=== PATIENT | female | born 1945 | race Caucasian/White ===

== ENCOUNTER 2019-07-20 06:00 | Outpatient (RCR) | payer MEDICARE, OTHER, SELFPAY | END 2019-08-04 23:59 | disposition home or self-care (01) | LOC: MPT 06:00 | PROVIDERS: Family Provider Family Medicine; PCP Family Medicine; Visit Provider Family Medicine | DX: R32 Unspecified urinary incontinence (principal) | CPT/HCPCS: 97110; 97140; 97161; 97530 ==

== ENCOUNTER 2019-08-05 06:00 | Outpatient (RCR) | payer MEDICARE, OTHER, SELFPAY | END 2019-09-02 23:59 | disposition home or self-care (01) | LOC: MPT 06:00 | PROVIDERS: Family Provider Family Medicine; PCP Family Medicine; Visit Provider Family Medicine | DX: R32 Unspecified urinary incontinence (principal) | CPT/HCPCS: 97110; 97140 ==

== ENCOUNTER 2019-08-18 15:41 | Outpatient (CLI) | payer MEDICARE, OTHER, SELFPAY ==
--- NOTE | 2019-08-18 15:45 | USCV_ITS ---
MaverickEpifanioIrina Age: 74 Gender: F : 1945 Exam Date: 08/18/2019 16:16 Ordering Phys: Jackie Pate MD ([email or web address]) Technologist: ROSA MARIA GARZA Exam Location: [facility] [place] Indication: SOB, BRADYCARDIA, HTN BP: 119 / 46 HR: 64 Rhythm: Sinus Technical Quality: Adequate MEASUREMENTS (Male / Female) Normal Values 2D ECHO LV Diastolic Diameter PLAX 4.2 cm 4.2 - 5.9 / 3.9 - 5.3 cm LV Systolic Diameter PLAX 3.1 cm IVS Diastolic Thickness 0.9 cm 0.6 - 1.0 / 0.6 - 0.9 cm IVS Systolic Thickness 1.1 cm LVPW Diastolic Thickness 1.0 cm 0.6 - 1.0 / 0.6 - 0.9 cm LVPW Systolic Thickness 1.4 cm LVOT Diameter 2.0 cm LV Ejection Fraction 2D Teich 51.4 % LV Ejection Fraction MOD 2C 72.7 % LV Ejection Fraction 2C AL 74.0 % LA Diameter 2.5 cm LA Width 3.5 cm LA Height 4.9 cm RA Width 3.2 cm RA Height 5.1 cm Aorta at Sinotubular Diameter 2.6 cm M-MODE LV Diastolic Diameter MM 4.8 cm 4.2 - 5.9 / 3.9 - 5.3 cm LV Systolic Diameter MM 3.0 cm LV Ejection Fraction MM Teich 65.3 % IVS Diastolic Thickness MM 0.9 cm 0.6 - 1.0 / 0.6 - 0.9 cm IVS Systolic Thickness MM 1.4 cm LVPW Diastolic Thickness MM 1.0 cm 0.6 - 1.0 / 0.6 - 0.9 cm LVPW Systolic Thickness MM 1.1 cm Aortic Annulus Diameter 2.9 cm LA Ao Ratio MM 0.9 MV E Point Septal Separation 0.3 cm DOPPLER AV Peak Velocity 135.0 cm/s LVOT Peak Velocity 101.0 cm/s AV Area Cont Eq vti 2.4 cm squared AV Area Cont Eq pk 2.4 cm squared MV Area PHT 2.7 cm squared Mitral E to A Ratio 1.1 MV E' Velocity 12.0 cm/s Mitral E to MV E' Ratio 7.2 Mitral E to LV E' Lateral Ratio 6.8 Mitral E to LV E' Septal Ratio 7.5 TV Peak E Velocity 59.0 cm/s Right Atrial Pressure 3.0 mmHg PV Peak Velocity 86.0 cm/s RV Acceleration Time 0.2 s RV Ejection Time 0.3 s RV AcT/ET 0.5 FINDINGS Left Ventricle Normal left ventricular cavity size. Normal left ventricular systolic function. No regional wall motion abnormalities. Left ventricular ejection fraction is estimated at 60 %. Grade I/IV diastolic dysfunction (abnormal relaxation filling pattern), normal to mildly elevated filling pressures. Right Ventricle Normal right ventricular size. RVSP could not be calculated due to incomplete tricuspid regurgitation velocity profile. Right Atrium The right atrium is normal in size. Left Atrium Moderately increased left atrial size. Mitral Valve Moderately thickened mitral valve. No mitral valve stenosis. Mild mitral valve regurgitation. Aortic Valve Moderate aortic valve calcification. No aortic valve stenosis. Mild aortic valve regurgitation. Tricuspid Valve Mild tricuspid valve regurgitation. Pulmonic Valve Structurally normal pulmonic valve without significant stenosis. There is no pulmonic regurgitation. Pericardium Normal pericardium without effusion. Aorta Normal ascending aorta dimension. CONCLUSIONS 1-Normal left ventricular cavity size. Normal left ventricular systolic function. No regional wall motion abnormalities. Left ventricular ejection fraction is estimated at 60 %. Grade I/IV diastolic dysfunction (abnormal relaxation filling pattern), normal to mildly elevated filling pressures. 2-Normal right ventricular size. RVSP could not be calculated due to incomplete tricuspid regurgitation velocity profile. 3-Moderately increased left atrial size. 4-Moderately thickened mitral valve. No mitral valve stenosis. Mild mitral valve regurgitation. 5-Moderate aortic valve calcification. No aortic valve stenosis. Mild aortic valve regurgitation. 6-Mild tricuspid valve regurgitation. 7-There is no pericardial effusion. 8-Right atrial pressure is around 5 mm of mercury. 9-There are no prior echocardiogram studies to compare. Jackie Pate MD (Electronically Signed) Final Date: 21 August 2019 20:08 S
== END 2019-08-18 15:42 | disposition home or self-care (01) ==
LOC: US 15:41
PROVIDERS: Family Provider Family Medicine; PCP Family Medicine; Visit Provider Internal Medicine Cardiovascular Disease
DX: R06.02 Shortness of breath (principal); R00.1 Bradycardia, unspecified; I10 Essential (primary) hypertension; I34.0 Nonrheumatic mitral (valve) insufficiency; I70.0 Atherosclerosis of aorta; I07.1 Rheumatic tricuspid insufficiency; I35.1 Nonrheumatic aortic (valve) insufficiency
CPT/HCPCS: 93306

== ENCOUNTER → 2020-06-03 11:23 | Outpatient (BNVA) | payer MEDICARE, OTHER, SELFPAY | PROVIDERS: Family Provider Family Medicine; PCP Family Medicine; Visit Provider Family Medicine | DX: Z12.39 Encounter for other screening for malignant neoplasm of breast (principal); Z12.11 Encounter for screening for malignant neoplasm of colon; E78.2 Mixed hyperlipidemia; I50.32 Chronic diastolic (congestive) heart failure; R73.03 Prediabetes; R82.90 Unspecified abnormal findings in urine; F41.9 Anxiety disorder, unspecified; Z12.31 Encounter for screening mammogram for malignant neoplasm of breast; I11.0 Hypertensive heart disease with heart failure | CPT/HCPCS: 80053; 80061; 81000; 83036 ==

== ENCOUNTER → 2020-06-14 09:59 | Outpatient (BNVA) | payer MEDICARE, OTHER, SELFPAY | PROVIDERS: Family Provider Family Medicine; PCP Family Medicine; Referring Provider Internal Medicine; Visit Provider Internal Medicine | DX: Z01.818 Encounter for other preprocedural examination (principal); Z86.010 Personal history of colon polyps | CPT/HCPCS: 87635 ==

== ENCOUNTER 2020-06-21 07:53 | Day surgery (SDC) | payer MEDICARE, OTHER, SELFPAY ==
[2020-06-19 14:21] VITALS: BMI 23.5
[2020-06-21 08:07] VITALS: BP 112/84; PULSE 86; RESP 16; TEMP 36.7; O2SAT 96
[2020-06-21] MEDS: sodium chloride 0.9% 1,000 ML 30 ML IV (08:22)
[2020-06-21 08:28] LABS: Glucose Point of Care 95 mg/dL (70-110)
--- NOTE | 2020-06-21 08:51 | P.ANESASSM_ITS ---
Pre-Anesthetic Assessment Pre-Anesthetic Assessment: Height/Weight: Height 1.63 m Weight 62.142 kg Temp Pulse Resp BP Pulse Ox 98.1 F 86 16 112/84 96 06/21/20 08:07 06/21/20 08:07 06/21/20 08:07 06/21/20 08:07 06/21/20 08:07 Preop Diagnosis: hx polyps Proposed Procedure: Operation Date: 06/21/20 09:15 Proposed Procedures p Colonoscopy 43469 Z86.010(Not Applicable) - Andrade Howe MD Last intake: Intake Last Liquid Date 06/20/20 Last Liquid Time 21:00 Last Solid Date 06/19/20 Last Solid Time 21:00 Social: Social History: No alcohol and No tobacco Exam: Pre-Anes Outpt Exam: alert, oriented x 3, clear to auscultation bilaterally and regular rate & rhythm Airway: Submandibular: WNL Cervical ROM: WNL MP: 2 Dentition: Full History/ROS: No significant history except as noted and No significant complaints Pulmonary: Pulmonary: None reported CV/HEM: CV/HEM: CAD (hx mild MD, denies cp or PCI) and HTN : : None reported Hepatic: Hepatic: None reported Metabolic: Metabolic: None reported Musc/skel: Musc/skel: OA/DJD Neuropsych: Neuropsych: Anxiety Anesthetic Plan: ASA status: 2 Anesthesia: MAC Meds/Allergies Current Medications: Current Medications Generic Name Dose Route Start Last Admin Trade Name Freq PRN Reason Stop Dose Admin Sodium Chloride 1,000 mls @ 30 ml s/hr 06/21/20 08:00 06/21/20 08:22 Sodium Chloride 0.9% IV 06/22/20 07:59 30 mls/hr .Q24H LUIS Administration PFSH Anesthesia 2 PFSH: Medical History Bradycardia Dementia, senile with depression Diastolic CHF Essential hypertension History of malignant melanoma Hx of vaginal delivery Irregular heartbeat Mixed hyperlipidemia Urinary incontinence Surgical History History of melanoma excision History of neck surgery Previous back surgery S/P cholecystectomy S/P hysterectomy Family History Daughter Diabetes Mother Myocardial infarction Brother Myocardial infarction Social History Smoking and tobacco status: former smoker Quit status (tobacco): has quit using tobacco Second hand smoke exposure: No Alcohol intake: never Desire information about alcohol rehabilitation?: No Desire information about substance/drug rehabilitation?: No Current occupational status: retired History of recent travel: No Female Reproductive History: Spontaneous abortions: No Data Anesthesia Other Labs: Laboratory Results - last 48 hr 06/21/20 08:19 POC Glucose 95 Cardiac Studies: No Data to Display
--- NOTE | 2020-06-21 09:06 | W.PM.OPSUD ---
Surgery/Procedure H&P Update DATE OF PROCEDURE: June 21, 2020 DATE H&P PERFORMED: 06/12/20 PREOP DIAGNOSIS: hx polyps PLANNED PROCEDURE: Operation Date: 06/21/20 09:15 Proposed Procedures p Colonoscopy 62919 Z86.010(Not Applicable) - Andrade Howe MD
[2020-06-21 09:17] VITALS: BP 112/84; PULSE 87; RESP 18; TEMP 36.7; O2SAT 96
[2020-06-21 09:29] VITALS: BP 100/74; PULSE 70; RESP 18; TEMP 36.3; O2SAT 97
== END 2020-06-21 09:42 | disposition home or self-care (01) ==
PROVIDERS: PCP Family Medicine; Visit Provider Internal Medicine
PROC: 0DJD8ZZ Inspection of Lower Intestinal Tract, Via Natural or Artificial Opening Endoscopic (ICD-10-PCS; CPT 45378; principal; 2020-06-21 09:15)
DX: Z86.010 Personal history of colon polyps (principal); I25.10 Atherosclerotic heart disease of native coronary artery without angina pectoris; I25.2 Old myocardial infarction; M19.90 Unspecified osteoarthritis, unspecified site; F41.9 Anxiety disorder, unspecified; I11.0 Hypertensive heart disease with heart failure; I50.30 Unspecified diastolic (congestive) heart failure; E78.2 Mixed hyperlipidemia; Z87.891 Personal history of nicotine dependence
CPT/HCPCS: 12345; 36416; 82962; G0121; J2704; J7030

== ENCOUNTER 2020-06-24 09:09 | Outpatient (CLI) | payer MEDICARE, OTHER, SELFPAY ==
--- NOTE | 2020-06-24 10:00 | MM_ITS ---
WS: [id number] BILATERAL DIGITAL SCREENING MAMMOGRAPHY WITH CAD CLINICAL INFORMATION: Z12.39 - Encounter for other screening for malignant neoplasm of breast HISTORY: Screening mammogram. No current complaints. COMPARISON: TECHNIQUE: Bilateral CC and MLO views. FINDINGS: Scattered fibroglandular densities bilaterally. No suspicious focal mass, asymmetry, calcifications, or architectural distortion. No evidence of malignancy. Punctate calcifications. Vascular calcificati ons. MM/[place] [id number] IMPRESSION: BI-RADS: 2-Benign FOLLOW UP: 1 Year Follow-up Recommend return to annual screening mammography.
== END 2020-06-24 09:10 | disposition home or self-care (01) ==
LOC: RADSHAW 09:12
PROVIDERS: PCP Family Medicine; Visit Provider Family Medicine
DX: Z12.31 Encounter for screening mammogram for malignant neoplasm of breast (principal)
CPT/HCPCS: 77067

== ENCOUNTER → 2020-12-30 12:21 | Outpatient (BNVA) | payer MEDICARE, OTHER, SELFPAY | PROVIDERS: PCP Family Medicine; Visit Provider Family Medicine | DX: E53.8 Deficiency of other specified B group vitamins (principal); F03.91 Unspecified dementia, unspecified severity, with behavioral disturbance; F41.1 Generalized anxiety disorder; I10 Essential (primary) hypertension; J30.9 Allergic rhinitis, unspecified; R73.03 Prediabetes; R53.83 Other fatigue; R32 Unspecified urinary incontinence; I50.32 Chronic diastolic (congestive) heart failure; J30.1 Allergic rhinitis due to pollen; R35.0 Frequency of micturition | CPT/HCPCS: 80053; 80061; 81000; 82607; 83036; 85025; 87086 ==

== ENCOUNTER → 2021-01-20 13:41 | Outpatient (BNVA) | payer MEDICARE, OTHER, SELFPAY | PROVIDERS: PCP Family Medicine; Referring Provider Family Medicine; Visit Provider Nurse Practitioner Family | DX: R32 Unspecified urinary incontinence (principal); Z87.442 Personal history of urinary calculi | CPT/HCPCS: 81003 ==

== ENCOUNTER 2021-02-10 11:18 | Outpatient (CLI) | payer MEDICARE, OTHER, SELFPAY ==
--- NOTE | 2021-02-10 12:15 | XRR_ITS ---
PROCEDURE INFORMATION: Exam: XR Abdomen Exam date and time: 02/10/2021 12:15 PM Age: 75 years old Clinical indication: Condition or disease; Kidney or ureter condition; Calculus (stone) in kidney; Prior surgery; Surgery type: Hysterectomy, gb; Additional info: Kidney stones TECHNIQUE: Imaging protocol: XR of the abdomen. Views: Frontal supine view of the abdomen. 1 View. COMPARISON: CT abdomen pelvis con [id number] 11/12/2020 10:24 AM FINDINGS: Gastrointestinal tract: Bowel gas pattern is nonspecific. No mass effect upon the bowel loops. Distal rectal gas. Scattered loops of air filled small bowel none of which are dilated. Intraperitoneal space: Surgical clips right mid abdomen Bones/joints: No acute process within the osseous structures of the spine or pelvis. Other findings: No appreciable calcifications XR/XR KUB [id number] IMPRESSION: Bowel gas pattern is nonspecific.
== END 2021-02-10 11:19 | disposition home or self-care (01) ==
PROVIDERS: PCP Family Medicine; Visit Provider Urology
DX: N20.0 Calculus of kidney (principal)
CPT/HCPCS: 74018; 81003

== ENCOUNTER → 2021-04-23 11:13 | Outpatient (BNVA) | payer MEDICARE, OTHER, SELFPAY | PROVIDERS: PCP Family Medicine; Visit Provider Family Medicine | DX: E87.5 Hyperkalemia (principal); I10 Essential (primary) hypertension | CPT/HCPCS: 80048 ==

== ENCOUNTER 2021-06-12 12:44 | Outpatient (CLI) | payer MEDICARE, OTHER, SELFPAY ==
--- NOTE | 2021-06-12 12:15 | XR_ITS ---
WS: [id number] Exam: XR KUB [id number] Date/Time of Exam: 06/12/2021 12:15 PM Reason For Exam: hx of kidney stones No bowel obstruction or free air. No calcifications noted over the region of the kidneys. Signs of pr ior cholecystectomy. No sign of organ enlargement. Regional bony elements are unremarkable. XR/XR KUB [id number] IMPRESSION: 1. No acute abdominal process.
== END 2021-06-12 12:45 | disposition home or self-care (01) ==
PROVIDERS: PCP Family Medicine; Visit Provider Urology
DX: Z87.442 Personal history of urinary calculi (principal)
CPT/HCPCS: 74018; 81003

== ENCOUNTER → 2021-10-14 09:55 | Outpatient (BNVA) | payer MEDICARE, SELFPAY | PROVIDERS: PCP Family Medicine; Visit Provider Family Medicine | DX: E78.2 Mixed hyperlipidemia (principal); I10 Essential (primary) hypertension; E53.8 Deficiency of other specified B group vitamins; F03.91 Unspecified dementia, unspecified severity, with behavioral disturbance; Z13.220 Encounter for screening for lipoid disorders; Z13.6 Encounter for screening for cardiovascular disorders | CPT/HCPCS: 80048; 80061; 82607 ==

== ENCOUNTER → 2021-12-16 10:34 | Outpatient (BNVA) | payer MEDICARE, SELFPAY | PROVIDERS: PCP Family Medicine; Visit Provider Internal Medicine Cardiovascular Disease | DX: I11.0 Hypertensive heart disease with heart failure (principal); I50.32 Chronic diastolic (congestive) heart failure; R00.1 Bradycardia, unspecified; F03.91 Unspecified dementia, unspecified severity, with behavioral disturbance; E78.2 Mixed hyperlipidemia; Z87.891 Personal history of nicotine dependence | CPT/HCPCS: 93005; 99214 ==

== ENCOUNTER → 2022-01-22 13:52 | Outpatient (BNVA) | payer MEDICARE, SELFPAY | PROVIDERS: PCP Family Medicine; Visit Provider Family Medicine | DX: R73.03 Prediabetes (principal); I10 Essential (primary) hypertension; F41.1 Generalized anxiety disorder; F33.1 Major depressive disorder, recurrent, moderate; F03.91 Unspecified dementia, unspecified severity, with behavioral disturbance; J30.9 Allergic rhinitis, unspecified; E53.8 Deficiency of other specified B group vitamins; E87.5 Hyperkalemia; J30.1 Allergic rhinitis due to pollen | CPT/HCPCS: 80048; 83036 ==

== ENCOUNTER → 2022-03-19 13:33 | Outpatient (BNVA) | payer MEDICARE, SELFPAY | PROVIDERS: PCP Family Medicine; Visit Provider Emergency Medicine | DX: S02.2XXA Fracture of nasal bones, initial encounter for closed fracture (principal); W19.XXXA Unspecified fall, initial encounter; R04.0 Epistaxis | CPT/HCPCS: 70160 ==

== ENCOUNTER → 2022-03-25 15:08 | Outpatient (BNVA) | payer MEDICARE, SELFPAY | PROVIDERS: PCP Family Medicine; Visit Provider Otolaryngology | DX: S02.2XXA Fracture of nasal bones, initial encounter for closed fracture (principal); W19.XXXA Unspecified fall, initial encounter | CPT/HCPCS: 99202; 99203 ==

== ENCOUNTER → 2022-06-16 11:03 | Outpatient (BNVA) | payer MEDICARE, SELFPAY | PROVIDERS: PCP Family Medicine; Visit Provider Internal Medicine Cardiovascular Disease | DX: I11.0 Hypertensive heart disease with heart failure (principal); I50.32 Chronic diastolic (congestive) heart failure; R00.1 Bradycardia, unspecified; F03.93 Unspecified dementia, unspecified severity, with mood disturbance | CPT/HCPCS: 99214 ==

== ENCOUNTER → 2022-10-26 09:30 | Outpatient (BNVA) | payer MEDICARE, SELFPAY | PROVIDERS: PCP Family Medicine; Visit Provider Family Medicine | DX: E78.2 Mixed hyperlipidemia (principal); R73.03 Prediabetes; I11.0 Hypertensive heart disease with heart failure; I50.32 Chronic diastolic (congestive) heart failure; Z51.81 Encounter for therapeutic drug level monitoring | CPT/HCPCS: 80053; 80061; 83036; 83880; 85025 ==

== ENCOUNTER 2022-11-09 14:09 | Observation (INO) | payer MEDICARE, SELFPAY ==
[2022-11-09] VITALS (11 sets, daily range): BP systolic 108–150; BP diastolic 60–79; PULSE 56–66; RESP 16–20; TEMP 36.7; O2SAT 91–95; BMI 24.2
--- NOTE | 2022-11-09 14:10 | XRR_ITS ---
PROCEDURE INFORMATION: Exam: XR Chest Exam date and time: 11/09/2022 2:37 PM Age: 77 years old Clinical indication: Cough and dyspnea; Additional info: Dyspnea/cough TECHNIQUE: Imaging protocol: Radiologic exam of the chest. Views: 1 view. COMPARISON: None FINDINGS: Lungs: Emphysematous change , interstitial prominence, chronic granulomatous disease. No acute infiltrate. Pleural spaces: No pleural effusion. Heart/Mediastinum: No cardiomegaly. Bones/joints: Osteopenia and degenerative change. XR/XR chest 1V portable [id number] IMPRESSION: Emphysematous change , interstitial prominence, chronic granulomatous disease.
--- NOTE | 2022-11-09 14:19 | ECG_ITS ---
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 Measurements Intervals [place] Rate: 62 P: 64 DC: 195 QRS: 55 QRSD: 74 T: 62 QT: 395 QTc: 402 Interpretive Statements SINUS RHYTHM Compared to ECG 06/13/2019 09:28:48 Sinus bradycardia no longer present First degree AV block no longer present Electronically Signed On 11-09-2022 17:09:15 CDT by Dinesh Clay M.D. [email or web address] hardin memorial hospitalCelladon/store/NU/[id number] f
--- NOTE | 2022-11-09 14:33 | W.ED.URI ---
HPI - URI/Sore Throat General: Chief Complaint: Upper Respiratory Infection Stated Complaint: sob Time Seen by Provider: 11/09/22 14:10 Source: patient Mode of arrival: EMS History of Present Illness: 77-year-old female presents emergency room after being directed here from one of the primary care clinics. For last 2 weeks she has had a cough with shortness of breath. The cough has been more productive over time now she is having significant green mucus. She denies any chest pain she has paroxysmal coughing fits daily to the point of vomiting. With any exertion she gets extremely short of breath. She not had any swelling in her legs no orthopnea no vomiting or diarrhea. MD elicited complaint: fever and cough Onset (ago): day(s) Consistency: constant and progressively worsening Severity: moderate Able to tolerate fluids by mouth: Yes Exacerbating factors: exertion Relieving factors: rest Associated symptoms: Deny abdominal pain, change in voice, chills, chest pain, congestion, cough, diarrhea, epistaxis, ear or mastoid pain, fever(s), headache(s), myalgias, nasal congestion, nausea, rash, rhinorrhea, short of breath, sinus pain, stiffness, sore throat or vomiting Treatments prior to arrival: none Review of Systems Const: Denies: fever(s) or chills ENMT: Denies: ear or mastoid pain, nasal congestion, epistaxis or sinus pain Card: Denies: chest pain Resp: Reports: dyspnea, productive cough and wheezing GI: Denies: abdominal pain, nausea, vomiting or diarrhea : Denies: dysuria, urinary frequency or urinary urgency Neuro: Denies: headache(s) PFSH ED PFSH: Medical History Allergic rhinitis Bradycardia Dementia, senile with depression Diastolic CHF Essential hypertension History of kidney stones History of malignant melanoma Hx of vaginal delivery Irregular heartbeat Mixed hyperlipidemia Other difficulties with micturition Urinary incontinence Urinary incontinence, mixed Surgical History History of melanoma excision History of neck surgery Previous back surgery S/P cholecystectomy S/P hysterectomy Family History Daughter Diabetes Mother Myocardial infarction CAD (coronary artery disease), Onset Age: 60 CABG x 4 Brother Myocardial infarction CAD (coronary artery disease), Onset Age: 60 Family/Other Dementia Diabetes Family/Other CAD (coronary artery disease) Father CAD (coronary artery disease), Onset Age: 60 CABG x 4 Denies family history of Clotting disorder Chronic kidney disease (CKD) Suicide Anesthesia complication Bleeding disorder Lung disease Cancer Stroke Social History Smoking and tobacco status: never smoked Quit status (tobacco): has quit using tobacco Second hand smoke exposure: No Alcohol intake: never Desire information about alcohol rehabilitation?: No Substance/Drug Use: never Desire information about substance/drug rehabilitation?: No Current occupational status: retired Female Reproductive History: Spontaneous abortions: No Physical Exam Const: GENERAL APPEARANCE: cooperative and comfortable ORIENTATION/CONSCIOUSNESS: Yes awake, Yes oriented to person, Yes oriented to place and Yes oriented to time HENMT: COMMON NORMALS: normocephalic, atraumatic and hearing grossly normal bilaterally HEAD & SCALP: normocephalic and atraumatic Resp: AUSCULTATION: rhonchi and wheezes Cardio: COMMON NORMALS: regular rate, regular rhythm and No murmurs present (Cardio) RATE: regular rate RHYTHM: regular rhythm GI: COMMON NORMALS: Soft to palpation and No hepatosplenomegaly present AUSCULTATION: Yes normoactive bowel sounds PALPATION: Yes Soft to palpation, No Tenderness to palpation present (GI), No Guarding due to palpation present (GI) and Yes No hepatosplenomegaly present : COMMON NORMALS: Yes no CVA tenderness BLADDER/KIDNEY EXAM: Yes no CVA tenderness Back/Pelvis: COMMON NORMALS: no CVA tenderness Extremity: COMMON NORMALS: normal to inspection, capillary refill normal, no clubbing, cyanosis or edema, no calf tenderness and no pedal edema Neuro: SENSORIUM/ORIENTATION: Yes oriented to person, Yes oriented to place and Yes oriented to time Skin: COMMON NORMALS: no rashes or lesions noted GENERAL SKIN EXAM: no rashes or lesions noted Course Vital Signs: Vital signs: Vital Signs Temperature 97.7 F 11/10/22 04:00 Pulse Rate 59 L 11/10/22 04:00 Respiratory Rate 18 11/10/22 04:00 Blood Pressure 108/54 11/10/22 04:00 Pulse Oximetry 93 11/10/22 04:00 Oxygen Delivery Me thod Nasal Cannula 11/10/22 04:00 Oxygen Flow Rate 2 11/10/22 04:00 MDM - URI/Sore Throat Medical Decision Making Productive cough interstitial changes but no definitive infiltrate. Patient is not requiring oxygen were in the normal bases she does not. Based on her clinical appearance suspect she does have a pneumonia. Sputum sample obtained started on ceftriaxone and Zithromax. Aggressive pulmonary toilet. Based on her exam and imaging there is no sign of pneumothorax no widening the mediastinum no evidence of aneurysm. There is no symptoms suggestive of acute coronary syndrome EKG is unremarkable. Discussed with hospitalist orders written Medical Records I reviewed the patient's medical records. Lab Data I reviewed the patient's lab results. 11/10/22 04:26 11/10/22 04:26 Radiology Impressions Chest X-Ray 11/09/22 14:10 IMPRESSION: Emphysematous change , interstitial prominence, chronic granulomatous disease. Laboratory Results WBC 8.0 10^3/uL (4.0-10.0) 11/09/22 14:30 RBC 4.40 10^6/uL (4.1-5.3) 11/09/22 14:30 Hgb 12.8 g/dL (11.5-15.3) 11/09/22 14:30 Hct 42.6 % (37.0-47.0) 11/09/22 14:30 MCV 96.8 fl (81-99) 11/09/22 14:30 MCH 29.1 pg (28.0-34.0) 11/09/22 14:30 MCHC 30.0 g/dL (30.0-36.0) 11/09/22 14:30 RDW 14.1 % (12.1-15.1) 11/09/22 14:30 Plt Count 284 10^3/cmm (130-400) 11/09/22 14:30 MPV 10.2 fL (7.4-10.4) 11/09/22 14:30 Neut % (Auto) 67.8 % 11/09/22 14:30 Lymph % (Auto) 21.3 % 11/09/22 14:30 [place] % (Auto) 7.8 % 11/09/22 14:30 Eos % (Auto) 2.0 % 11/09/22 14:30 Baso % (Auto) 0.8 % 11/09/22 14:30 Neut # (Auto) 5.44 10^3/uL (1.8-7.7) 11/09/22 14:30 Lymph # (Auto) 1.7 10^3/uL (0.8-4.8) 11/09/22 14:30 Norton # (Auto) 0.6 10^3/uL (0.2-0.9) 11/09/22 14:30 Eos # (Auto) 0.2 10^3/uL (0.0-0.8) 11/09/22 14:30 Baso # (Auto) 0.1 10^3/uL (0.0-0.1) 11/09/22 14:30 Nucleated RBC % (auto) 0 % 11/09/22 14:30 Nucleated RBCs # 0.0 /100WBC 11/09/22 14:30 Sodium 136 mmol/L (136-145) 11/09/22 14:30 Potassium 4.7 mmol/L (3.5-5.1) 11/09/22 14:30 Chloride 99 mmol/L (98-107) 11/09/22 14:30 Carbon Dioxide 29 mmol/L (22-29) 11/09/22 14:30 Anion Gap 12.7 (5-19) 11/09/22 14:30 BUN 22 mg/dL (8-23) 11/09/22 14:30 Creatinine 1.1 mg/dL (0.5-0.9) H 11/09/22 14:30 GFR Calculation Not Reportable 11/09/22 14:30 Glucose 97 mg/dL (65-115) 11/09/22 14:30 Calculated Osmolality 285 mOsm/kg (285-295) 11/09/22 14:30 Calcium 8.5 mg/dL (8.5-10.5) 11/09/22 14:30 Total Bilirubin 0.2 mg/dL (0.15-1.2) 11/09/22 14:30 AST 14 U/L (0-32) 11/09/22 14:30 ALT 12 U/L (0-33) 11/09/22 14:30 Alkaline Phosphatase 70 U/L (35-105) 11/09/22 14:30 Troponin T Baseline 15 ng/L (0-10) H 11/09/22 14:30 Troponin T 120 Minute 14.08 ng/L (0-10) H 11/09/22 16:39 Delta Troponin T -0.92 ABS# (0-10) L 11/09/22 16:39 NT-Pro-B Natriuret Pep 881 pg/mL (0-450) H 11/09/22 14:30 Total Protein 6.7 g/dL (6.6-8.7) 11/09/22 14:30 Albumin 3.3 g/dL (3.5-5.2) L 11/09/22 14:30 Globulin 3.4 g/dL (1.3-4.6) 11/09/22 14:30 Discharge Plan Discharge Patient Disposition: Admitted As Inpatient Admit Provider: Jabier Schaefer Clinical Impression: Pneumonia, Acute exacerbation of chronic obstructive pulmonary disease, Hypoxia Condition: Stable Coding Level of Care Code ED Executive Candidate Developer for Myriam Davis
[2022-11-09 14:40] LABS: Basophils # 0.1 10^3/uL (0.0-0.1); Basophils % 0.8 %; Eosinophils # 0.2 10^3/uL (0.0-0.8); Hematocrit 42.6 % (37.0-47.0); Hemoglobin 12.8 g/dL (11.5-15.3); Lymphocytes # 1.7 10^3/uL (0.8-4.8); Lymphocytes % 21.3 %; Mean Corpuscular Hemoglobin 29.1 pg (28.0-34.0); Mean Corpuscular Volume 96.8 fl (81-99); Mean Platelet Volume 10.2 fL (7.4-10.4); Monocytes # 0.6 10^3/uL (0.2-0.9); Monocytes % 7.8 %; Neutrophils # 5.44 10^3/uL (1.8-7.7); Neutrophils % 67.8 %; Nucleated Red Blood Cells % 0 %; Platelet Count 284 10^3/cmm (130-400); Red Cell Distribution Width 14.1 % (12.1-15.1)
[2022-11-09 15:02] LABS: Troponin(5th) Baseline 15 ng/L (0-10)
[2022-11-09 15:11] LABS: Alanine Aminotransferase 12 U/L (0-33); Albumin Level 3.3 g/dL (3.5-5.2); Alkaline Phosphatase 70 U/L (35-105); Anion Gap 12.7 (5-19); Aspartate Amino Transferase 14 U/L (0-32); Blood Urea Nitrogen 22 mg/dL (8-23); Calcium 8.5 mg/dL (8.5-10.5); Carbon Dioxide 29 mmol/L (22-29); Chloride 99 mmol/L (98-107); Globulin 3.4 g/dL (1.3-4.6); Glucose 97 mg/dL (65-115); NT Pro B Type Natriuretic Pept 881 pg/mL (0-450); Osmolality Calculated 285 mOsm/kg (285-295); Potassium 4.7 mmol/L (3.5-5.1); Sodium 136 mmol/L (136-145); Total Bilirubin 0.2 mg/dL (0.15-1.2); Total Protein 6.7 g/dL (6.6-8.7)
[2022-11-09] MEDS: ipratropium-albuterol 3 mL Neb INHALATION (15:17)
--- NOTE | 2022-11-09 16:52 | ECG_ITS ---
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 Measurements Intervals [place] Rate: 55 P: 53 [place]: 199 QRS: 38 QRSD: 66 T: 51 QT: 405 QTc: 390 Interpretive Statements SINUS BRADYCARDIA Compared to ECG 11/09/2022 14:19:42 Sinus rhythm no longer present Electronically Signed On 11-09-2022 17:17:55 CDT by Dinesh Clay M.D. [id number]
[2022-11-09 17:09] LABS: Troponin 5 2HR 14.08 ng/L (0-10)
[2022-11-09 17:13] LABS: Troponin 5 2HR Delta -0.92 ABS# (0-10)
--- NOTE | 2022-11-09 17:45 | P.HP_ITS ---
Providers/Chief Complaint Primary Care Provider: Darlene Knutson MD Chief Complaint: sob History of Present Illness Irina Temple is a 77 year old female with past medical history of hypertension came in today with chief complaint of worsening shortness of breath, cough, with greenish sputum production, runny nose, headache, According to the patient this is going on for about a month's time and has progressively worsened since then. X-ray chest has shown: Emphysematous change , interstitial prominence, chronic granulomatous disease. Her vitals and labs have been reviewed. Review of Systems General: Reports: 10 or more systems reviewed and unremarkable except in HPI and below Const: Denies: fever(s), chills, body aches, change in appetite or diaphoresis Card: Denies: palpitations, edema, swelling of feet/ankles, dyspnea on exertion, orthopnea or leg pain with exertion Resp: Reports: dyspnea, productive cough and wheezing; Denies: pain on inspiration GI: Denies: abdominal pain, nausea, vomiting, diarrhea or constipation : Denies: flank pain Musc: Denies: back pain, extremity pain or extremity swelling Neuro: Denies: headache(s), difficulty walking or confusion Medications/Allergies Home Medications Medication Instructions Recorded Confirmed Last Taken Type acetaminophen 325 mg capsule 325 mg PO QID PRN Pain 10/14/21 11/09/22 Unknown History cyanocobalamin (vitamin B-12) 1,000 mcg PO DAILY 10/23/21 11/09/22 11/09/22 History 1,000 mcg tablet cetirizine 10 mg tablet (Zyrtec) 10 mg PO DAILY PRN Allergy Symptoms 06/16/22 11/09/22 11/09/22 History memantine 10 mg tablet 10 mg PO BID 07/27/22 11/09/22 11/09/22 History amlodipine 5 mg tablet 5 mg PO QDAY #90 tabs 10/26/22 11/09/22 11/09/22 Rx carvedilol 12.5 mg tablet 12.5 mg PO BID #180 tabs 10/26/22 11/09/22 11/09/22 Rx escitalopram oxalate 20 mg tablet 20 mg PO QDAY 90 days #90 tabs 10/26/22 11/09/22 11/09/22 Rx donepezil 10 mg tablet 10 mg PO BEDTIME 0511/09/22 11/09/22 History Allergies Allergy/AdvReac Type Severity Reaction Status Date / Time codeine Allergy hives Verified 11/09/22 14:18 Penicillins Allergy can't Verified 11/09/22 14:18 breathe Sulfa (Sulfonamide Allergy Horrible Verified 11/09/22 14:18 Antibiotics) taste in my mouth PFSH Acute PFSH: Medical History Allergic rhinitis Bradycardia Dementia, senile with depression Diastolic CHF Essential hypertension History of kidney stones History of malignant melanoma Hx of vaginal delivery Irregular heartbeat Mixed hyperlipidemia Other difficulties with micturition Urinary incontinence Urinary incontinence, mixed Surgical History History of melanoma excision History of neck surgery Previous back surgery S/P cholecystectomy S/P hysterectomy Family History Daughter Diabetes Mother Myocardial infarction CAD (coronary artery disease), Onset Age: 60 CABG x 4 Brother Myocardial infarction CAD (coronary artery disease), Onset Age: 60 Family/Other Dementia Diabetes Family/Other CAD (coronary artery disease) Father CAD (coronary artery disease), Onset Age: 60 CABG x 4 Denies family history of Clotting disorder Chronic kidney disease (CKD) Suicide Anesthesia complication Bleeding disorder Lung disease Cancer Stroke Social History Smoking and tobacco status: never smoked Quit status (tobacco): has quit using tobacco Second hand smoke exposure: No Alcohol intake: never Desire information about alcohol rehabilitation?: No Substance/Drug Use: never Desire information about substance/drug rehabilitation?: No Current occupational status: retired Female Reproductive History: Spontaneous abortions: No Vitals/I&O/Wt Last Vital Signs Temp 98.1 F 11/09/22 14:10 Pulse 57 L 11/09/22 17:00 Resp 20 H 11/09/22 17:00 BP 136/69 11/09/22 17:00 Pulse Ox 94 11/09/22 17:00 O2 Del Method Nasal Cannula 11/09/22 17:00 O2 Flow Rate 2 11/09/22 17:00 Weight last 48 hrs Weight 63.957 kg Physical Exam Const: COMMON NORMALS: patient oriented x3 HENMT: COMMON NORMALS: normocephalic and atraumatic Resp: OTHER: Minimal bilateral wheezing present in both the lungs field Cardio: COMMON NORMALS: regular rate, regular rhythm, S1 normal heart sound present, S2 normal heart sound present, No gallops present (Cardio), No murmurs present (Cardio), No rub (Cardio) and Peripheral pulses 2+ throughout RATE: regular rate RHYTHM: regular rhythm HEART SOUNDS: S1 normal heart sound present and S2 normal heart sound present PERIPHERAL PULSES: Peripheral pulses 2+ throughout GI: COMMON NORMALS: Normal to inspection, nondistended, normoactive bowel sounds present, Soft to palpation, non-tender, No hepatosplenomegaly present and no masses AUSCULTATION: Yes normoactive bowel sounds PALPATION: Yes Soft t o palpation and Yes No hepatosplenomegaly present RECTAL EXAM: deferred Extremity: COMMON NORMALS: no clubbing, cyanosis or edema and no pedal edema Neuro: COMMON NORMALS: patient oriented x3 Data 11/10/22 04:26 11/10/22 04:26 A&P Assessment and plan (1) Essential hypertension: (2) B12 deficiency: (3) Hypoxia: (4) Diastolic CHF: Qualifiers: Heart failure chronicity: chronic Qualified Code(s): I50.32 - Chronic diastolic (congestive) heart failure (5) COPD exacerbation: Plan 77 year old female with past medical history of hypertension came in today with chief complaint of worsening shortness of breath, cough, with greenish sputum production, runny nose, headache, According to the patient this is going on for about a month's time and has progressively worsened since then. Assessment: Possible COPD exacerbation: Possibly exacerbated by pneumonia X-ray chest has shown: Emphysematous change , interstitial prominence, chronic granulomatous disease. Sputum Gram stain and culture Urine Legionella urine Bacterial antigen panel Continue Solu-Medrol IV DuoNebs Currently empirically on ceftriaxone azithromycin Supplemental oxygen as needed Monitor x-ray chest as needed CODE STATUS: Full code DVT prophylaxis on Lovenox Attestations Medical Necessity Statement*: Patient needs to be in hospital for management of COPD exacerbation. Coding Level of Care Code Acute Code for Chg Fwd Diagnoses Essential hypertension I10 B12 deficiency E53.8 Hypoxia R09.02 Diastolic CHF I50.32 Heart failure chronicity: chronic COPD exacerbation J44.1
[2022-11-09] MEDS: memantine 5 mg tablet 10 MG PO (18:26)
[2022-11-09] MEDS: enoxaparin 40 mg/0.4 mL Syringe SUBCUT (18:28)
[2022-11-09] MEDS: guaiFENesin 600 mg Tablet 1200 MG PO (20:20)
[2022-11-09] MEDS: azithromycin 500 MG in sodium chloride 0.9% 250 ML 250 MG IV (20:21)
[2022-11-09 21:24] LABS: Troponin 5 6HR 15.88 ng/L (0-10)
[2022-11-09] MEDS: donepezil 5 MG Tablet 10 MG PO (21:25)
[2022-11-09] MEDS: sodium chloride 0.9% 1,000 ML 100 ML IV (21:25)
[2022-11-09] MEDS: cefTRIAXone 1,000 MG in sodium chloride 0.9% (plus) 50 ML 100 MG IV (21:27)
[2022-11-09 21:29] LABS: Troponin 5 6HR Delta 0.88 ng/L (0-12)
[2022-11-10] VITALS (11 sets, daily range): BP systolic 106–115; BP diastolic 54–64; PULSE 58–65; RESP 15–18; TEMP 36.4–36.7; O2SAT 82–97
[2022-11-10 04:55] LABS: Basophils % 0.3 %; Hematocrit 43.9 % (37.0-47.0); Hemoglobin 13.4 g/dL (11.5-15.3); Lymphocytes # 0.8 10^3/uL (0.8-4.8); Lymphocytes % 8.5 %; Mean Corpuscular HGB Conc 30.5 g/dL (30.0-36.0); Mean Corpuscular Hemoglobin 29.5 pg (28.0-34.0); Mean Corpuscular Volume 96.5 fl (81-99); Mean Platelet Volume 10.8 fL (7.4-10.4); Monocytes % 0.4 %; Neutrophils # 8.72 10^3/uL (1.8-7.7); Neutrophils % 90.4 %; Nucleated Red Blood Cells % 0 %; Platelet Count 264 10^3/cmm (130-400); Red Blood Count 4.55 10^6/uL (4.1-5.3); Red Cell Distribution Width 14.2 % (12.1-15.1); White Blood Count 9.7 10^3/uL (4.0-10.0)
[2022-11-10 05:18] LABS: Blood Urea Nitrogen 21 mg/dL (8-23); Calcium 8.6 mg/dL (8.5-10.5); Carbon Dioxide 25 mmol/L (22-29); Chloride 102 mmol/L (98-107); Glucose 138 mg/dL (65-115); Magnesium 2.2 mg/dL (1.7-2.3); Osmolality Calculated 293 mOsm/kg (285-295); Sodium 139 mmol/L (136-145)
[2022-11-10 05:23] LABS: Procalcitonin 0.05 ng/mL (0-0.5)
[2022-11-10 05:28] LABS: Anion Gap 17.4 (5-19); Potassium 5.4 mmol/L (3.5-5.1)
[2022-11-10] MEDS: amlodipine 5 mg Tablet PO (06:24)
[2022-11-10] MEDS: sodium chloride 0.9% 1,000 ML 100 ML IV ×2 (06:25→17:38)
[2022-11-10] MEDS: ipratropium-albuterol 3 mL Neb INHALATION ×3 (08:19→20:21)
[2022-11-10] MEDS: cyanocobalamin 1,000 mcg Tablet 1000 MCG PO (08:26)
[2022-11-10] MEDS: memantine 5 mg tablet 10 MG PO ×2 (08:26→17:39)
[2022-11-10] MEDS: guaiFENesin 600 mg Tablet 1200 MG PO ×2 (08:26→17:39)
[2022-11-10] MEDS: escitalopram 10 mg Tablet 20 MG PO (08:26)
--- NOTE | 2022-11-10 11:07 | PC.CHAP ---
Pastoral Care Encounter/Spiritual Assessment Type of Contact [] Declined technical aid visit [] Patient/Family/Request visit [] Outpatient visit [] Follow-up visit [] Physician referral [] Code/Alert [x] Routine visit [] Staff referral [] Actively dying [] Patient sleeping [] Family support [] [] Out of room [] Palliative care [] [] Receiving care in room [] Pre-surgical visit [] Trauma [] Long length of stay [] ICU visit [] Other: Relational/Emotional Strength [x] Patient feels connected with others/family/visitors/staff [] Distress [] Loneliness/isolation [] Abandonment Spirituality of Patient [x] Person of [place] x[] Attends Mu-Ism of their [place] [x] Believes in Prayer [x] Reads Bible or Hindu materials [] There are Spiritual issues to be addressed Flash Welder Interventions [x] Prayer [x] Active listening [] Non-anxious presence [x] Spiritual/emotional support [] Crisis/trauma care [] Spiritual counseling [] Bereavement support [] Provided bereavement packet [] Provided Bible/devotional materials [] Provided toy/stuffed animal, coloring book to patient or family member [] Provided Communion [] Anointing/[place] [] Salvation [x] Completed spiritual assessment [] Other: Impact on Illness or Injury [] Angry [] Fearful [] Anxious [] Often cries [] Exhaustion [] Unable to work [] Unable to attend scientologist [] Unable to walk/stand [] Unable to read [] Unable to drive [] Unable to eat/drink [] Unable to sleep [] Unable to be with family [] Patient intubated [] Other: Summary Time spent with patient 5 min
[2022-11-10] MEDS: dexamethasone 4 mg/mL INJ IVP ×2 (12:26→20:05)
--- NOTE | 2022-11-10 13:18 | P.PN_ITS ---
Subjective Subjective: Shortness of breath is improved, patient was complaining of post nasal drip. Medications: Medication Review Details: Generic Name Dose Route Start Last Admin Trade Name Tashiq PRN Reason Stop Dose Admin Albuterol/Ipratrop ium 3 ml 11/09/22 20:00 11/10/22 08:19 Ipratropium-Albu terol 3 Ml Neb INHALATION 3 ml Q6H.RESP LUIS Administration Albuterol/Ipratrop ium 3 ml 11/09/22 20:48 11/10/22 11:21 Ipratropium-Albu terol 3 Ml Neb INHALATION Not Given QID.RESPIRATORY S CH Amlodipine Besylat e 5 mg 11/10/22 07:00 11/10/22 06:24 Amlodipine 5 Mg Tablet PO 5 mg DAILY@0700 LUIS Administration Cyanocobalamin 1,000 mcg 11/10/22 09:00 11/10/22 08:26 Cyanocobalamin 1 ,000 Mcg Tablet PO 1,000 mcg DAILY LUIS Administration Dexamethasone 4 mg 11/10/22 11:30 11/10/22 12:26 Dexamethasone 4 Mg/Ml Inj IVP 4 mg Q8H LUIS Administration Donepezil HCl 10 mg 11/09/22 21:00 11/09/22 21:25 Donepezil 5 Mg T ablet PO 10 mg BEDTIME LUIS Administration Enoxaparin Sodium 40 mg 11/09/22 17:45 11/09/22 18:28 Enoxaparin 40 Mg /0.4 Ml Syringe SUBCUT 40 mg Q24H LUIS Administration Escitalopram Oxala te 20 mg 11/10/22 09:00 11/10/22 08:26 Escitalopram 10 Mg Tablet PO 20 mg DAILY LUIS Administration Guaifenesin 1,200 mg 11/09/22 19:25 11/10/22 08:26 Guaifenesin 600 Mg Tablet PO 1,200 mg BID LUIS Administration Ceftriaxone Sodium 1,000 mg/ 50 mls @ 100 mls/ hr 11/09/22 19:30 11/10/22 03:51 Sodium Chloride IV Infused Q24H LUIS Infusion Protocol Azithromycin 500 m g/ Sodium 250 mls @ 250 mls /hr 11/09/22 19:30 11/10/22 03:51 Chloride IV Infused Q24H LUIS Infusion Protocol Sodium Chloride 1,000 mls @ 100 m ls/hr 11/09/22 20:48 11/10/22 06:25 Sodium Chloride 0.9% IV 100 mls/hr .Q10H LUIS Administration Memantine 10 mg 11/09/22 18:00 11/10/22 08:26 Memantine 5 Mg T ablet PO 10 mg BID LUIS Administration Vitals/I&O/Wt Last Vital Signs Temp 97.6 F 11/10/22 08:00 Pulse 59 L 11/10/22 08:22 Resp 16 11/10/22 08:19 BP 115/60 11/10/22 08:00 Pulse Ox 97 11/10/22 08:19 O2 Del Method Nasal Cannula 11/10/22 08:19 O2 Flow Rate 2 11/10/22 08:19 11/09/22 11/10/22 11/10/22 22:59 06:59 14:59 Intake Total 0 / 0 1200 / 1200 240 / 240 Balance 0 / 0 1200 / 1200 240 / 240 Weight last 48 hrs Weight 63.957 kg Physical Exam Const: COMMON NORMALS: patient oriented x3 HENMT: COMMON NORMALS: normocephalic and atraumatic HEAD & SCALP: normocephalic and atraumatic Resp: OTHER: Minimal bilateral wheezing present in both the lungs field Cardio: COMMON NORMALS: regular rate, regular rhythm, S1 normal heart sound present, S2 normal heart sound present, No gallops present (Cardio), No murmurs present (Cardio), No rub (Cardio) and Peripheral pulses 2+ throughout RATE: regular rate RHYTHM: regular rhythm HEART SOUNDS: S1 normal heart sound present and S2 normal heart sound present PERIPHERAL PULSES: Peripheral pulses 2+ throughout GI: COMMON NORMALS: Normal to inspection, nondistended, normoactive bowel sounds present, Soft to palpation, non-tender, No hepatosplenomegaly present and no masses AUSCULTATION: Yes normoactive bowel sounds PALPATION: Yes Soft to palpation and Yes No hepatosplenomegaly present RECTAL EXAM: deferred : COMMON NORMALS: Yes no CVA tenderness BLADDER/KIDNEY EXAM: Yes no CVA tenderness Back/Pelvis: COMMON NORMALS: no CVA tenderness Extremity: COMMON NORMALS: no clubbing, cyanosis or edema and no pedal edema Neuro: COMMON NORMALS: patient oriented x3 Data 11/10/22 04:26 11/10/22 04:26 A&P Assessment and plan (1) Essential hypertension: (2) B12 deficiency: (3) Hypoxia: (4) Diastolic CHF: Qualifiers: Heart failure chronicity: chronic Qualified Code(s): I50.32 - Chronic diastolic (congestive) heart failure (5) COPD exacerbation: Plan 77 year old female with past medical history of hypertension came in today with chief complaint of worsening shortness of breath, cough, with greenish sputum production, runny nose, headache, According to the patient this is going on for about a month's time and has progressively worsened since then. Assessment: Possible COPD exacerbation: Possibly exacerbated by pneumonia X-ray chest has shown: Emphysematous change , interstitial prominence, chronic granulomatous disease. Sputum Gram stain and culture Urine Legionella urine Bacterial antigen panel Continue Solu-Medrol IV DuoNebs Currently empirically on ceftriaxone azithromycin Supplemental oxygen as needed Monitor x-ray chest as needed CODE STATUS: Full code DVT prophylaxis on Lovenox Attestations Medical Necessity Statement*: Needs to be in hospital for IV antibiotics. Coding Level of Care Code Acute Code for [facility] Diagnoses Essential hypertension I10 B12 deficiency E53.8 Hypoxia R09.02 Diastolic CHF I50.32 Heart failure chronicity: chronic COPD exacerbation J44.1
[2022-11-10] MEDS: fluticasone nasal spray 16gm Btl 1 SPRAY NASAL ×2 (13:59→17:40)
[2022-11-10] MEDS: carvedilol 12.5 mg Tablet PO (17:39)
[2022-11-10] MEDS: enoxaparin 40 mg/0.4 mL Syringe SUBCUT (17:39)
[2022-11-10] MEDS: azithromycin 500 MG in sodium chloride 0.9% 250 ML 250 MG IV (18:38)
[2022-11-10] MEDS: donepezil 5 MG Tablet 10 MG PO (20:04)
[2022-11-10] MEDS: cefTRIAXone 1,000 MG in sodium chloride 0.9% (plus) 50 ML 100 MG IV (20:05)
[2022-11-11] VITALS (13 sets, daily range): BP systolic 106–131; BP diastolic 60–79; PULSE 51–93; RESP 16–22; TEMP 36.7–36.8; O2SAT 90–97; BMI 24.2
[2022-11-11] MEDS: ipratropium-albuterol 3 mL Neb INHALATION ×4 (02:31→20:21)
[2022-11-11] MEDS: dexamethasone 4 mg/mL INJ IVP ×3 (03:30→19:24)
[2022-11-11] MEDS: sodium chloride 0.9% 1,000 ML 100 ML IV (04:19)
[2022-11-11 05:47] LABS: Basophils % 0.1 %; Hematocrit 40.1 % (37.0-47.0); Hemoglobin 11.9 g/dL (11.5-15.3); Lymphocytes # 1.1 10^3/uL (0.8-4.8); Lymphocytes % 6.2 %; Mean Corpuscular HGB Conc 29.7 g/dL (30.0-36.0); Mean Corpuscular Hemoglobin 29.5 pg (28.0-34.0); Mean Corpuscular Volume 99.5 fl (81-99); Mean Platelet Volume 10.7 fL (7.4-10.4); Monocytes # 0.5 10^3/uL (0.2-0.9); Monocytes % 2.8 %; Neutrophils # 15.42 10^3/uL (1.8-7.7); Neutrophils % 90.4 %; Nucleated Red Blood Cells % 0 %; Platelet Count 258 10^3/cmm (130-400); Red Blood Count 4.03 10^6/uL (4.1-5.3); Red Cell Distribution Width 14.5 % (12.1-15.1); White Blood Count 17.1 10^3/uL (4.0-10.0)
[2022-11-11 07:32] LABS: Anion Gap 10.6 (5-19); Blood Urea Nitrogen 25 mg/dL (8-23); Calcium 8.5 mg/dL (8.5-10.5); Carbon Dioxide 26 mmol/L (22-29); Chloride 105 mmol/L (98-107); Glucose 139 mg/dL (65-115); Osmolality Calculated 291 mOsm/kg (285-295); Potassium 4.6 mmol/L (3.5-5.1); Sodium 137 mmol/L (136-145)
[2022-11-11] MEDS: memantine 5 mg tablet 10 MG PO ×2 (09:37→17:14)
[2022-11-11] MEDS: escitalopram 10 mg Tablet 20 MG PO (09:38)
[2022-11-11] MEDS: cyanocobalamin 1,000 mcg Tablet 1000 MCG PO (09:38)
[2022-11-11] MEDS: guaiFENesin 600 mg Tablet 1200 MG PO ×2 (09:38→17:14)
[2022-11-11] MEDS: fluticasone nasal spray 16gm Btl 1 SPRAY NASAL ×2 (09:43→17:15)
--- NOTE | 2022-11-11 15:04 | PM.PN ---
Subjective Subjective: Patient was seen and examined this morning shortness of breath is improving continue to have postnasal drip Medications: Medication Review Details: Generic Name Dose Route Start Last Admin Trade Name Radha PRN Reason Stop Dose Admin Albuterol/Ipratrop ium 3 ml 11/09/22 20:00 11/10/22 08:19 Ipratropium-Albu terol 3 Ml Neb INHALATION 3 ml Q6H.RESP LUIS Administration Albuterol/Ipratrop ium 3 ml 11/09/22 20:48 11/10/22 11:21 Ipratropium-Albu terol 3 Ml Neb INHALATION Not Given QID.RESPIRATORY S CH Amlodipine Besylat e 5 mg 11/10/22 07:00 11/10/22 06:24 Amlodipine 5 Mg Tablet PO 5 mg DAILY@0700 LUIS Administration Cyanocobalamin 1,000 mcg 11/10/22 09:00 11/10/22 08:26 Cyanocobalamin 1 ,000 Mcg Tablet PO 1,000 mcg DAILY LUIS Administration Dexamethasone 4 mg 11/10/22 11:30 11/10/22 12:26 Dexamethasone 4 Mg/Ml Inj IVP 4 mg Q8H LUIS Administration Donepezil HCl 10 mg 11/09/22 21:00 11/09/22 21:25 Donepezil 5 Mg T ablet PO 10 mg BEDTIME LUIS Administration Enoxaparin Sodium 40 mg 11/09/22 17:45 11/09/22 18:28 Enoxaparin 40 Mg /0.4 Ml Syringe SUBCUT 40 mg Q24H LUIS Administration Escitalopram Oxala te 20 mg 11/10/22 09:00 11/10/22 08:26 Escitalopram 10 Mg Tablet PO 20 mg DAILY LUIS Administration Guaifenesin 1,200 mg 11/09/22 19:25 11/10/22 08:26 Guaifenesin 600 Mg Tablet PO 1,200 mg BID LUIS Administration Ceftriaxone Sodium 1,000 mg/ 50 mls @ 100 mls/ hr 11/09/22 19:30 11/10/22 03:51 Sodium Chloride IV Infused Q24H LUIS Infusion Protocol Azithromycin 500 m g/ Sodium 250 mls @ 250 mls /hr 11/09/22 19:30 11/10/22 03:51 Chloride IV Infused Q24H LUIS Infusion Protocol Sodium Chloride 1,000 mls @ 100 m ls/hr 11/09/22 20:48 11/10/22 06:25 Sodium Chloride 0.9% IV 100 mls/hr .Q10H LUIS Administration Memantine 10 mg 11/09/22 18:00 11/10/22 08:26 Memantine 5 Mg T ablet PO 10 mg BID LUIS Administration Vitals/I&O/Wt Last Vital Signs Temp 98.3 F 11/11/22 11:24 Pulse 86 11/11/22 14:14 Resp 22 H 11/11/22 14:00 BP 111/63 11/11/22 11:24 Pulse Ox 90 11/11/22 14:00 O2 Del Method Room Air 11/11/22 14:00 O2 Flow Rate 3 11/11/22 07:55 11/11/22 11/11/22 11/11/22 06:59 14:59 22:59 Intake Total 1000 / 3500 1021.667 / 1021.667 Balance 1000 / 3500 1021.667 / 1021.667 Physical Exam Const: COMMON NORMALS: patient oriented x3 HENMT: COMMON NORMALS: normocephalic and atraumatic HEAD & SCALP: normocephalic and atraumatic Resp: COMMON NORMALS: clear to auscultation bilaterally AUSCULTATION: clear to auscultation bilaterally OTHER: Minimal bilateral wheezing present in both the lungs field Cardio: COMMON NORMALS: regular rate, regular rhythm, S1 normal heart sound present, S2 normal heart sound present, No gallops present (Cardio), No murmurs present (Cardio), No rub (Cardio) and Peripheral pulses 2+ throughout RATE: regular rate RHYTHM: regular rhythm HEART SOUNDS: S1 normal heart sound present and S2 normal heart sound present PERIPHERAL PULSES: Peripheral pulses 2+ throughout GI: COMMON NORMALS: Normal to inspection, nondistended, normoactive bowel sounds present, Soft to palpation, non-tender, No hepatosplenomegaly present and no masses AUSCULTATION: Yes normoactive bowel sounds PALPATION: Yes Soft to palpation and Yes No hepatosplenomegaly present RECTAL EXAM: deferred : COMMON NORMALS: Yes no CVA tenderness BLADDER/KIDNEY EXAM: Yes no CVA tenderness Back/Pelvis: COMMON NORMALS: no CVA tenderness Extremity: COMMON NORMALS: no clubbing, cyanosis or edema and no pedal edema Neuro: COMMON NORMALS: patient oriented x3 Data 11/11/22 05:33 11/11/22 07:00 A&P Assessment and plan (1) Essential hypertension: (2) B12 deficiency: (3) Hypoxia: (4) Diastolic CHF: Qualifiers: Heart failure chronicity: chronic Qualified Code(s): I50.32 - Chronic diastolic (congestive) heart failure (5) COPD exacerbation: Plan 77 year old female with past medical history of hypertension came in today with chief complaint of worsening shortness of breath, cough, with greenish sputum production, runny nose, headache, According to the patient this is going on for about a month's time and has progressively worsened since then. Assessment: Possible COPD exacerbation: Possibly exacerbated by pneumonia X-ray chest has shown: Emphysematous change , interstitial prominence, chronic granulomatous disease. Sputum Gram stain and culture Urine Legionella urine Bacterial antigen panel Continue Solu-Medrol IV DuoNebs Currently empirically on ceftriaxone azithromycin Supplemental oxygen as needed Monitor x-ray chest as needed CODE STATUS: Full code DVT prophylaxis on Lovenox Attestations Medical Necessity Statement*: Needs to be in hospital for IV antibiotics. Coding Level of Care Code Acute Code for Chg Fwd Diagnoses Essential hypertension I10 B12 deficiency E53.8 Hypoxia R09.02 Diastolic CHF I50.32 Heart failure chronicity: chronic COPD exacerbation J44.1
[2022-11-11] MEDS: enoxaparin 40 mg/0.4 mL Syringe SUBCUT (17:14)
[2022-11-11] MEDS: azithromycin 500 MG in sodium chloride 0.9% 250 ML 250 MG IV (19:24)
[2022-11-11] MEDS: donepezil 5 MG Tablet 10 MG PO (20:14)
[2022-11-11] MEDS: carvedilol 6.25 mg Tablet PO (20:15)
[2022-11-11] MEDS: acetaminophen 325 mg Tablet 650 MG PO (22:14)
--- NOTE | 2022-11-11 22:48 | PC.NURSE ---
At approximately 20:20 upon rounding and preparing to flush the patients IV and to start the next antibiotic this nurse assessed the patient's IV site to be red, and minor swelling noted. This nurse asked the pt when the pain and redness started. The patient replied the IV site began to hurt about 5 mins before this nurse rounded in the room. The IV was immediately removed and the catheter was assessed to be completely intact when removed. Dr. Jeter was notified and a warm compress was asked to be applied. This nurse assessed pulses to be 3+ proximal and distal of the site. The charge nurse also assessed the sight with this nurse. This nurse elevated the site and applied a warm compress. The patient states that the pain is improving.
[2022-11-11] MEDS: cefUROXime 250 mg Tablet 500 MG PO (23:23)
[2022-11-12 00:20] VITALS: BP 134/76; PULSE 63; RESP 16; TEMP 36.7; O2SAT 95
[2022-11-12] MEDS: dexamethasone 4 mg Tablet PO (03:07)
--- NOTE | 2022-11-12 03:10 | PC.NURSE ---
Pt states that her pain has completely went away in her left forearm where the IV was at. This nurse assessed the site to find no swelling present and minor redness.
[2022-11-12 05:04] VITALS: BP 135/62; PULSE 61; RESP 18; TEMP 37.2; O2SAT 94
[2022-11-12 05:05] LABS: Basophils % 0.1 %; Hematocrit 38.1 % (37.0-47.0); Hemoglobin 11.5 g/dL (11.5-15.3); Lymphocytes # 0.8 10^3/uL (0.8-4.8); Lymphocytes % 5.6 %; Mean Corpuscular HGB Conc 30.2 g/dL (30.0-36.0); Mean Corpuscular Hemoglobin 29.2 pg (28.0-34.0); Mean Corpuscular Volume 96.7 fl (81-99); Mean Platelet Volume 11.2 fL (7.4-10.4); Monocytes # 0.4 10^3/uL (0.2-0.9); Monocytes % 2.6 %; Neutrophils % 91.2 %; Nucleated Red Blood Cells % 0 %; Platelet Count 234 10^3/cmm (130-400); Red Blood Count 3.94 10^6/uL (4.1-5.3); Red Cell Distribution Width 14.7 % (12.1-15.1); White Blood Count 14.6 10^3/uL (4.0-10.0)
[2022-11-12 05:32] LABS: Anion Gap 8.9 (5-19); Blood Urea Nitrogen 19 mg/dL (8-23); Calcium 8.6 mg/dL (8.5-10.5); Carbon Dioxide 29 mmol/L (22-29); Chloride 106 mmol/L (98-107); Glucose 127 mg/dL (65-115); Osmolality Calculated 292 mOsm/kg (285-295); Potassium 4.9 mmol/L (3.5-5.1); Sodium 139 mmol/L (136-145)
[2022-11-12] MEDS: ipratropium-albuterol 3 mL Neb INHALATION (07:36)
[2022-11-12 07:38] VITALS: PULSE 55; RESP 16; O2SAT 95
[2022-11-12 08:00] VITALS: BP 147/68; PULSE 60; RESP 17; TEMP 36.6; O2SAT 93
[2022-11-12] MEDS: amlodipine 5 mg Tablet PO (10:03)
[2022-11-12] MEDS: memantine 5 mg tablet 10 MG PO (10:03)
[2022-11-12] MEDS: escitalopram 10 mg Tablet 20 MG PO (10:04)
[2022-11-12] MEDS: cyanocobalamin 1,000 mcg Tablet 1000 MCG PO (10:04)
[2022-11-12] MEDS: guaiFENesin 600 mg Tablet 1200 MG PO (10:04)
[2022-11-12] MEDS: carvedilol 6.25 mg Tablet PO (10:04)
[2022-11-12] MEDS: fluticasone nasal spray 16gm Btl 1 SPRAY NASAL (10:05)
--- NOTE | 2022-11-12 10:15 | PC.SOCIAL ---
Imm update Imm updated with patient at bedside. Copy of page 2 provided. Patient verbalized understanding. Copy in chart initialed, dated and timed.
--- NOTE | 2022-11-12 10:22 | P.DS_ITS ---
Discharge Providers Date of Admission: 11/09/22 19:49 Date of Discharge: November 12, 2022 Attending Provider at Admission: Jabier Schaefer MD Attending Provider at Discharge: Jabier Schaefer MD Primary Care Provider: Darlene Knutson MD Diagnoses at Discharge Discharge Diagnosis (1) Essential hypertension: Status: Acute (2) B12 deficiency: Status: Acute (3) Hypoxia: Status: Acute (4) Diastolic CHF: Status: Acute Qualifiers: Heart failure chronicity: chronic Qualified Code(s): I50.32 - Chronic diastolic (congestive) heart failure (5) COPD exacerbation: Status: Acute Reason for Visit Reason for Visit: sob Hospital Course Hospital Course 77 year old female with past medical history of hypertension came in today with chief complaint of worsening shortness of breath, cough, with greenish sputum production, runny nose, headache, According to the patient this is going on for about a month's time and has progressively worsened since then.She was admitted for the management of COPD exacerbation, pneumonia:Patient was kept on Antibiotics steroids DuoNebs supplemental oxygen as needed, she responded well to above medical management, at the time of discharge shortness of breath had significantly improved.She qualified for 2 Ls oxygen with exertion. Physical Exam Const: COMMON NORMALS: patient oriented x3 HENMT: COMMON NORMALS: normocephalic and atraumatic HEAD & SCALP: normocephalic and atraumatic Resp: OTHER: Minimal bilateral wheezing present in both the lungs field Cardio: COMMON NORMALS: regular rate, regular rhythm, S1 normal heart sound present, S2 normal heart sound present, No gallops present (Cardio), No murmurs present (Cardio), No rub (Cardio) and Peripheral pulses 2+ throughout RATE: regular rate RHYTHM: regular rhythm HEART SOUNDS: S1 normal heart sound present and S2 normal heart sound present PERIPHERAL PULSES: Peripheral pulses 2+ throughout GI: COMMON NORMALS: Normal to inspection, nondistended, normoactive bowel sounds present, Soft to palpation, non-tender, No hepatosplenomegaly present and no masses AUSCULTATION: Yes normoactive bowel sounds PALPATION: Yes Soft to palpation and Yes No hepatosplenomegaly present RECTAL EXAM: deferred Extremity: COMMON NORMALS: no clubbing, cyanosis or edema and no pedal edema Neuro: COMMON NORMALS: patient oriented x3 Discharge Data Studies Completed and Pending Completed Studies During Hospitalization Category Date Time Status XR chest 1V portable [id number] Stat Exams 11/09/22 14:10 Completed Radiology Impressions Chest X-Ray 11/09/22 14:10 IMPRESSION: Emphysematous change , interstitial prominence, chronic granulomatous disease. Laboratory Results WBC 14.6 10^3/uL (4.0-10.0) H 11/12/22 04:40 RBC 3.94 10^6/uL (4.1-5.3) L 11/12/22 04:40 Hgb 11.5 g/dL (11.5-15.3) 11/12/22 04:40 Hct 38.1 % (37.0-47.0) 11/12/22 04:40 MCV 96.7 fl (81-99) 11/12/22 04:40 MCH 29.2 pg (28.0-34.0) 11/12/22 04:40 MCHC 30.2 g/dL (30.0-36.0) 11/12/22 04:40 RDW 14.7 % (12.1-15.1) 11/12/22 04:40 Plt Count 234 10^3/cmm (130-400) 11/12/22 04:40 MPV 11.2 fL (7.4-10.4) H 11/12/22 04:40 Neut % (Auto) 91.2 % 11/12/22 04:40 Lymph % (Auto) 5.6 % 11/12/22 04:40 [place] % (Auto) 2.6 % 11/12/22 04:40 Eos % (Auto) 0.0 % 11/12/22 04:40 Baso % (Auto) 0.1 % 11/12/22 04:40 Neut # (Auto) 13.30 10^3/uL (1.8-7.7) H 11/12/22 04:40 Lymph # (Auto) 0.8 10^3/uL (0.8-4.8) 11/12/22 04:40 [place] # (Auto) 0.4 10^3/uL (0.2-0.9) 11/12/22 04:40 Eos # (Auto) 0.0 10^3/uL (0.0-0.8) 11/12/22 04:40 Baso # (Auto) 0.0 10^3/uL (0.0-0.1) 11/12/22 04:40 Nucleated RBC % (auto) 0 % 11/12/22 04:40 Nucleated RBCs # 0.0 /100WBC 11/12/22 04:40 Sodium 139 mmol/L (136-145) 11/12/22 04:40 Potassium 4.9 mmol/L (3.5-5.1) 11/12/22 04:40 Chloride 106 mmol/L (98-107) 11/12/22 04:40 Carbon Dioxide 29 mmol/L (22-29) 11/12/22 04:40 Anion Gap 8.9 (5-19) 11/12/22 04:40 BUN 19 mg/dL (8-23) 11/12/22 04:40 Creatinine 0.6 mg/dL (0.5-0.9) 11/12/22 04:40 GFR Calculation Not Reportable 11/12/22 04:40 Glucose 127 mg/dL (65-115) H 11/12/22 04:40 Calculated Osmolality 292 mOsm/kg (285-295) 11/12/22 04:40 Calcium 8.6 mg/dL (8.5-10.5) 11/12/22 04:40 Magnesium 2.2 mg/dL (1.7-2.3) 11/10/22 04:26 Total Bilirubin 0.2 mg/dL (0.15-1.2) 11/09/22 14:30 AST 14 U/L (0-32) 11/09/22 14:30 ALT 12 U/L (0-33) 11/09/22 14:30 Alkaline Phosphatase 70 U/L (35-105) 11/09/22 14:30 Troponin T Baseline 15 ng/L (0-10) H 11/09/22 14:30 Troponin T 120 Minute 14.08 ng/L (0-10) H 11/09/22 16:39 Delta Troponin T -0.92 ABS# (0-10) L 11/09/22 16:39 Troponin T Hi Sens 6Hr 15.88 ng/L (0-10) H 11/09/22 20:54 Troponin T Hi Sens 6Hr Delta 0.88 ng/L (0-12) 11/09/22 20:54 NT-Pro-B Natriuret Pep 881 pg/mL (0-450) H 11/09/22 14:30 Total Protein 6.7 g/dL (6.6-8.7) 11/09/22 14:30 Albumin 3.3 g/dL (3.5-5.2) L 11/09/22 14:30 Globulin 3.4 g/dL (1.3-4.6) 11/09/22 14:30 Procalcitonin 0.05 ng/mL (0-0.5) 11/10/22 04:26 Vitals Last Vital Signs Temp 97.8 F 11/12/22 08:00 Pulse 60 11/12/22 08:00 Resp 17 11/12/22 08:00 BP 147/68 11/12/22 08:00 Pulse Ox 93 11/12/22 08:00 O2 Del Method Nasal Cannula 11/12/22 08:00 O2 Flow Rate 3 11/12/22 08:00 Discharge Plan Discharge Patient Disposition: Home Condition: Stable Prescriptions: New fluticasone propionate 50 mcg/actuation [place],Suspension 1 spray nasal BID 7 Days Qty: 1 0RF levofloxacin 500 mg tablet 500 mg PO DAILY 5 Days Qty: 5 0RF ProAir HFA 90 mcg/actuation HFA aerosol inhaler 1 inh inhalation Q6H PRN (Reason: shortness of breath or wheezing) Qty: 6.7 0RF benzonatate 200 mg capsule 200 mg PO TID PRN (Reason: cough) Qty: 30 0RF prednisone 20 mg tablet 40 mg PO DAILY 5 Days Qty: 10 0RF Pulmicort Flexhaler 90 mcg/actuation aerosol powdr breath activated 1 inh inhalation BID Qty: 1 0RF Continued acetaminophen 325 mg capsule 325 mg PO QID PRN (Reason: Pain) cetirizine [Zyrtec] 10 mg tablet 10 mg PO DAILY PRN (Reason: Allergy Symptoms) memantine 10 mg tablet 10 mg PO BID amlodipine 5 mg tablet 5 mg PO QDAY Qty: 90 3RF escitalopram oxalate 20 mg tablet 20 mg PO QDAY 90 Days Qty: 90 3RF cyanocobalamin (vitamin B-12) 1,000 mcg tablet 1,000 mcg PO DAILY Rx Instructions: Take three times weekly donepezil 10 mg tablet 10 mg PO BEDTIME Changed carvedilol 12.5 mg tablet 6.25 mg PO BID 30 Days Qty: 60 2RF Discharge Orders: Discharge Order (Routine); Ordered 11/12/22 Ordered By: Jabier Schaefer Other Ambulatory Orders: DME: Oxygen (Order) Location: None Selected Ordered By: Jabier Schaefer Referrals: Darlene Knutson MD [Primary Care Provider] - 11/17/22 11:00 am (Message sent to clinic.) Patient Instructions: Benzonatate (By mouth), Prednisone (By mouth), Fluticasone (By breathing), Levofloxacin (By mouth), Budesonide (By breathing), Pneumonia (GEN), Opioid Safety Discharge Attestations Time Spent in Discharge Care*: less than 30 min Quality Metrics Clinical Quality Measures [ No reported AMI, CVA or VTE this stay] Coding Level of Care Code Acute Code for Chg Fwd Diagnoses Essential hypertension I10 B12 deficiency E53.8 Hypoxia R09.02 Diastolic CHF I50.32 Heart failure chronicity: chronic COPD exacerbation J44.1
[2022-11-12 11:27] VITALS: O2SAT 86
[2022-11-12 14:01] VITALS: BP 147/68; PULSE 60; RESP 17; TEMP 36.6; O2SAT 93
--- NOTE | 2022-11-12 14:04 | PC.NURSE ---
1400- PT discharges with brother at side. Attempts to call Assisted Living Facility x3. Oxygen and paperwork sent with patient.
== END 2022-11-12 14:04 | disposition home or self-care (01) ==
LOC: ER 19:09 → MEDSURG 19:50
PROVIDERS: Admitting Provider Internal Medicine; Emergency Provider Family Medicine; PCP Family Medicine; Visit Provider Internal Medicine
DX: J18.9 Pneumonia, unspecified organism (principal); J44.1 Chronic obstructive pulmonary disease with (acute) exacerbation; R09.02 Hypoxemia; E53.8 Deficiency of other specified B group vitamins; I11.0 Hypertensive heart disease with heart failure; I50.32 Chronic diastolic (congestive) heart failure; E78.2 Mixed hyperlipidemia; I44.0 Atrioventricular block, first degree; F03.90 Unspecified dementia, unspecified severity, without behavioral disturbance, psychotic disturbance, mood disturbance, and anxiety; Z79.899 Other long term (current) drug therapy; Z87.891 Personal history of nicotine dependence; Z88.0 Allergy status to penicillin; Z88.2 Allergy status to sulfonamides; Z88.5 Allergy status to narcotic agent
CPT/HCPCS: 36415; 71045; 80048; 80053; 83735; 83880; 84145; 84484; 85025; 93005; 94640; 94760; 96365; 96366; 96372; 96375; 96376; 99285; G0378; J0456; J0696; J1100; J1650; J2930; J7030; J7050; J8540

== ENCOUNTER 2022-11-20 14:48 | Outpatient (CLI) | payer MEDICARE, SELFPAY ==
--- NOTE | 2022-11-20 15:00 | XR_ITS ---
WS: [id number] DEXA (DUAL ENERGY X-RAY ABSORPTIOMETRY) Bone mineral density was performed using a Vedicis machine. HISTORY: Z78.0 - Asymptomatic menopausal state COMPARISON: None available. Lumbar spine BMD (L1-L4): 1.235 g/cm2 T score: 0.5 Z score: 2.0 Total hip BMD: Left: 0.806 g/cm2. T score: -1.6 Z score: 0.1 Right: 0.796 g/cm2. T score: -1.7 Z score: 0.0 10 year probability of a major osteoporotic fracture is 35.0%. XR/XR DEXA axial skeleton* [id number] IMPRESSION: OSTEOPENIA based upon the WHO classification for females.
== END 2022-11-20 14:49 | disposition home or self-care (01) ==
LOC: RAD 14:51
PROVIDERS: PCP Family Medicine; Visit Provider Family Medicine
DX: Z13.820 Encounter for screening for osteoporosis (principal); Z78.0 Asymptomatic menopausal state; M85.80 Other specified disorders of bone density and structure, unspecified site
CPT/HCPCS: 77080

== ENCOUNTER → 2022-12-02 09:53 | Outpatient (BNVA) | payer MEDICARE, SELFPAY | PROVIDERS: PCP Family Medicine; Visit Provider Family Medicine | DX: J44.1 Chronic obstructive pulmonary disease with (acute) exacerbation (principal) | CPT/HCPCS: 71046 ==

== ENCOUNTER → 2022-12-02 11:34 | Outpatient (BNVA) | payer MEDICARE, SELFPAY | PROVIDERS: PCP Family Medicine; Visit Provider Family Medicine | DX: J44.1 Chronic obstructive pulmonary disease with (acute) exacerbation (principal); F03.90 Unspecified dementia, unspecified severity, without behavioral disturbance, psychotic disturbance, mood disturbance, and anxiety; J44.9 Chronic obstructive pulmonary disease, unspecified; S09.90XA Unspecified injury of head, initial encounter; Z99.81 Dependence on supplemental oxygen; W01.0XXA Fall on same level from slipping, tripping and stumbling without subsequent striking against object, initial encounter | CPT/HCPCS: 80053; 81000; 85025 ==

== ENCOUNTER 2022-12-03 11:45 | Emergency (ER) | payer MEDICARE, SELFPAY ==
[2022-12-03 12:07] VITALS: BMI 25.7
[2022-12-03 12:11] VITALS: BP 137/77; PULSE 61; RESP 16; TEMP 36.7; O2SAT 98
--- NOTE | 2022-12-03 12:28 | CT_ITS ---
WS: [id number] CT HEAD NONCONTRAST HISTORY: fall TECHNIQUE: Contiguous axial imaging performed through the brain in 2.5 mm imaging. Bone and soft tiss ue windows. Sagittal and coronal reformats reviewed. All CT scans at [facility] use at least one of these dose optimization techniques: automated exposure control; mA and/or kV adjustment per pa tient size (includes targeted exams where dose is matched to clinical indication); or iterative recon struction. DLP: 1100.24 mGy.cm COMPARISON: 09/07/2019 No acute intracranial hemorrhage, midline shift or mass effect. No atrophy or prior infarcts or herniation. Mild atrophy and small vessel ischemic disease. Ventricles: Normal size with no hydrocephalus. Paranasal sinuses: As visualized are clear. Mastoid air cells: Well pneumatized. Calvarium and scalp: Skull is intact with no soft tissue edema or swelling. CT/CT head wo con* [id number] IMPRESSION: 1. No acute intracranial hemorrhage or edema. 2. Very mild atrophy and small vessel ischemic disease.
[2022-12-03 13:11] LABS: Basophils # 0.1 10^3/uL (0.0-0.1); Basophils % 0.6 %; Eosinophils # 0.2 10^3/uL (0.0-0.8); Eosinophils % 2.5 %; Hematocrit 42.3 % (37.0-47.0); Lymphocytes # 1.5 10^3/uL (0.8-4.8); Mean Corpuscular HGB Conc 30.7 g/dL (30.0-36.0); Mean Corpuscular Hemoglobin 29.3 pg (28.0-34.0); Mean Corpuscular Volume 95.5 fl (81-99); Mean Platelet Volume 10.9 fL (7.4-10.4); Monocytes # 0.6 10^3/uL (0.2-0.9); Monocytes % 7.6 %; Neutrophils # 5.59 10^3/uL (1.8-7.7); Nucleated Red Blood Cells % 0 %; Platelet Count 213 10^3/cmm (130-400); Red Blood Count 4.43 10^6/uL (4.1-5.3); Red Cell Distribution Width 14.8 % (12.1-15.1)
--- NOTE | 2022-12-03 13:13 | ED_ITS ---
HPI - Altered Mental Status General: Chief Complaint: Altered Mental Status Stated Complaint: Confusion, head injury, dizziness Time Seen by Provider: 12/03/22 12:58 Source: patient and family (Brother) Mode of arrival: ambulatory Limitations: no limitations History of Present Illness: Patient was referred to the emergency department for possible head CT. Patient resides in assisted living facility. She was with her brother who is with her today approximately 2 weeks ago or thereabouts and tripped over the sidewalk curb and fell forward hitting her head. States that there was no loss of consci ous but she took a pretty good blow. Family is noticing some increased confusion over the past week or so. They state that she does have some mild dementia but they have noted increasing usual activities such as going to the store without her money, etc. She does not take any anticoagulants. She does take antihypertensives as well as inhaler and dementia medications. She denies any pain or discomfort. She denies any nausea vomiting sore throat cough etc. She was recently admitted to this facility for pneumonia and is still on approximately 1 L of oxygen daily. Consistency of symptoms: Waxing and Waning Review of Systems Const: Denies: fever(s) or chills Eyes: Denies: change in vision ENMT: Denies: throat pain, odynophagia, nasal discharge or nasal congestion Card: Denies: chest pain, syncope, pre-syncope or dyspnea on exertion Resp: Denies: dyspnea, productive cough, non-productive cough or wheezing GI: Denies: abdominal pain, nausea, vomiting, diarrhea, hematochezia or melena : Denies: flank pain, difficulty voiding, dysuria or urinary frequency Musc: Denies: neck pain, back pain, extremity pain or extremity swelling Skin/Breast: Denies: rash or pruritus Neuro: Denies: headache(s), numbness in extremities or weakness in extremities Jassi/Lymph: Denies: easy bruising or easy bleeding PFSH ED PFSH: Medical History Acute exacerbation of chronic obstructive pulmonary disease Allergic rhinitis B12 deficiency Bradycardia COPD exacerbation Dementia, senile with depression Diastolic CHF Essential hypertension History of kidney stones History of malignant melanoma Hx of vaginal delivery Hypoxia Hypoxia Irregular heartbeat Mixed hyperlipidemia Other difficulties with micturition Pneumonia Urinary incontinence Urinary incontinence, mixed Surgical History History of melanoma excision History of neck surgery Previous back surgery S/P cholecystectomy S/P hysterectomy Family History Daughter Diabetes Mother Myocardial infarction CAD (coronary artery disease), Onset Age: 60 CABG x 4 Brother Myocardial infarction CAD (coronary artery disease), Onset Age: 60 Family/Other Dementia Diabetes Family/Other CAD (coronary artery disease) Father CAD (coronary artery disease), Onset Age: 60 CABG x 4 Denies family history of Clotting disorder Chronic kidney disease (CKD) Suicide Anesthesia complication Bleeding disorder Lung disease Cancer Stroke Social History Smoking and tobacco status: never smoked Quit status (tobacco): has quit using tobacco Second hand smoke exposure: No Alcohol intake: never Desire information about alcohol rehabilitation?: No Substance/Drug Use: never Desire information about substance/drug rehabilitation?: No Current occupational status: retired Female Reproductive History: Spontaneous abortions: No Physical Exam Narrative: She is alert and answers questions appropriately. She appears to be in no acute distress. She has some residual bruising around her orbit. Const: COMMON NORMALS: no acute distress, average body habitus, healthy appearing and alert GENERAL APPEARANCE: cooperative and comfortable ORIENTATION/CONSCIOUSNESS: Yes awake, Yes oriented to person, Yes oriented to place and Yes oriented to time HENMT: COMMON NORMALS: normocephalic, Normal nasal mucous membranes and turbinates present and moist oral mucous membranes HEAD & SCALP: normocephalic FACE & SINUS: sinuses nontender and face symmetric NOSE: Normal nasal mucous membranes and turbinates present Eye: COMMON NORMALS: Equal, round and reactive pupils present, EOMs intact bilaterally and conjunctivae normal CONJUNCTIVA: Yes conjunctivae normal PUPIL: Yes Equal, round and reactive pupils present Neck/C-Spine: COMMON NORMALS: full ROM CERVICAL SPINE: Yes cervical ROM normal, No Cervical spine tenderness, No step off deformity, No Paracervical muscle tenderness, No Paracervical spasm and No Trapezius muscle tenderness OTHER: Normal range of motion without pain, restriction. Chest: COMMONS NORMALS: normal inspection of the chest Resp: COMMON NORMALS: normal respiratory effort, No retractions and No use of accessory muscles AUSCULTATION: diminished lung sounds bilateral Cardio: COMMON NORMALS: regular rate, regular rhythm, No murmurs present (Cardio) and Peripheral pulses 2+ throughout RATE: regular rate RHYTHM: regular rhythm PERIPHERAL PULSES: Peripheral pulses 2+ throughout GI: COMMON NORMALS: Normal to inspection, nondistended, normoactive bowel sounds present, Soft to palpation and non-tender PALPATION: Yes Soft to palpation : COMMON NORMALS: Yes no CVA tenderness BLADDER/KIDNEY EXAM: Yes no CVA tenderness Back/Pelvis: COMMON NORMALS: no CVA tenderness, thoracic and lumbar spine normal to inspection, no thoracic nor lumbar tenderness, thoraco-lumbar ROM normal and straight leg raise negative bilaterally Extremity: COMMON NORMALS: normal to inspection, full ROM, capillary refill normal, no calf tenderness and no pedal edema Neuro: COMMON NORMALS: moves all extremities, no focal motor deficits, no sensory deficits noted and gait normal SENSORIUM/ORIENTATION: Yes alert, Yes oriented to person, Yes oriented to place and Yes oriented to time CRANIAL NERVES: Yes CN normal except as noted Skin: COMMON NORMALS: no rashes or lesions noted, no wounds and turgor normal GENERAL SKIN EXAM: no rashes or lesions noted and turgor normal Course Reevaluation(s): Reevaluation #1: Patient remained stable and alert and interactive. No new or focal findings on reevaluation. Discussed results with both she and her brother who is in the room with her. They voiced understanding and were appreciative. Time: 14:32 Vital Signs: Vital signs: Vital Signs Temperature 98.1 F 12/03/22 12:11 Pulse Rate 55 L 12/03/22 14:13 Respiratory Rate 16 12/03/22 14:13 Blood Pressure 179/76 12/03/22 14:13 Pulse Oximetry 94 12/03/22 14:13 Oxygen Delivery Me thod Room Air 12/03/22 14:13 Oxygen Flow Rate 1 12/03/22 12:11 MDM - Altered Mental Status Medical Decision Making This patient was brought to the emergency department by her brother for essentially a head CT to rule out intercranial hemorrhage. She has been noted to having some fluctuations in concentration and having some intermittent memory issues which seem to be a little more frequent than family as noted previously. She does have a history of dementia and is on appropriate medication for that condition. He had a fall within the last 2 weeks prompting the concerns. No other constitutional symptoms to include fevers nausea vomiting diarrhea or other acute illness. Clinical examination revealed evidence of healing bruises in the frontal region but otherwise no concerning findings. She was oriented to person place time and situation had no clear memory deficits at the time of this examination. Her CT scan was reassuring as well as ancillary studies to include CBC chemistries and urinalysis. Low likelihood of infection at this time, no hypoxia, hypotension hypertension or other perturbations in her vital signs. Again no evidence of any cranial hemorrhage mass effect stroke etc. at this time based upon the CT scan. And her clinical examination. Discussed findings with patient and accompanying family. May represent fluctuating course of dementia but certainly close monitoring and follow-up as indicated is appropriate and they voiced understanding of that recommendation. Lab Data I reviewed the patient's lab results. 12/03/22 12:55 12/03/22 12:[address] 12/03/22 12:28 IMPRESSION: 1. No acute intracranial hemorrhage or edema. 2. Very mild atrophy and small vessel ischemic disease. Laboratory Results WBC 8.0 10^3/uL (4.0-10.0) 12/03/22 12:55 RBC 4.43 10^6/uL (4.1-5.3) 12/03/22 12:55 Hgb 13.0 g/dL (11.5-15.3) 12/03/22 12:55 Hct 42.3 % (37.0-47.0) 12/03/22 12:55 MCV 95.5 fl (81-99) 12/03/22 12:55 MCH 29.3 pg (28.0-34.0) 12/03/22 12:55 MCHC 30.7 g/dL (30.0-36.0) 12/03/22 12:55 RDW 14.8 % (12.1-15.1) 12/03/22 12:55 Plt Count 213 10^3/cmm (130-400) 12/03/22 12:55 MPV 10.9 fL (7.4-10.4) H 12/03/22 12:55 Neut % (Auto) 70.0 % 12/03/22 12:55 Lymph % (Auto) 19.0 % 12/03/22 12:55 [place] % (Auto) 7.6 % 12/03/22 12:55 Eos % (Auto) 2.5 % 12/03/22 12:55 Baso % (Auto) 0.6 % 12/03/22 12:55 Neut # (Auto) 5.59 10^3/uL (1.8-7.7) 12/03/22 12:55 Lymph # (Auto) 1.5 10^3/uL (0.8-4.8) 12/03/22 12:55 [place] # (Auto) 0.6 10^3/uL (0.2-0.9) 12/03/22 12:55 Eos # (Auto) 0.2 10^3/uL (0.0-0.8) 12/03/22 12:55 Baso # (Auto) 0.1 10^3/uL (0.0-0.1) 12/03/22 12:55 Nucleated RBC % (auto) 0 % 12/03/22 12:55 Nucleated RBCs # 0.0 /100WBC 12/03/22 12:55 Sodium 137 mmol/L (136-145) 12/03/22 12:55 Potassium 4.8 mmol/L (3.5-5.1) 12/03/22 12:55 Chloride 99 mmol/L (98-107) 12/03/22 12:55 Carbon Dioxide 31 mmol/L (22-29) H 12/03/22 12:55 Anion Gap 11.8 (5-19) 12/03/22 12:55 BUN 19 mg/dL (8-23) 12/03/22 12:55 Creatinine 0.6 mg/dL (0.5-0.9) 12/03/22 12:55 GFR Calculation Not Reportable 12/03/22 12:55 Glucose 93 mg/dL (65-115) 12/03/22 12:55 Calculated Osmolality 286 mOsm/kg (285-295) 12/03/22 12:55 Calcium 8.7 mg/dL (8.5-10.5) 12/03/22 12:55 Total Bilirubin 0.5 mg/dL (0.15-1.2) 12/03/22 12:55 AST 17 U/L (0-32) 12/03/22 12:55 ALT 18 U/L (0-33) 12/03/22 12:55 Alkaline Phosphatase 61 U/L (35-105) 12/03/22 12:55 Total Protein 6.7 g/dL (6.6-8.7) 12/03/22 12:55 Albumin 3.9 g/dL (3.5-5.2) 12/03/22 12:55 Globulin 2.8 g/dL (1.3-4.6) 12/03/22 12:55 Urine Color Yellow (Yellow) 12/03/22 13:57 Urine Appearance Clear (CLEAR) 12/03/22 13:57 Urine pH 5 (5-7) 12/03/22 13:57 Ur Specific [place] 1.020 (1.005-1.030) 12/03/22 13:57 Urine Protein Neg (Negative) 12/03/22 13:57 Urine Glucose (UA) Norm (Normal) 12/03/22 13:57 Urine Ketones Negative (Negative) 12/03/22 13:57 Urine Blood Neg (Negative) 12/03/22 13:57 Urine Nitrate Negative (Negative) 12/03/22 13:57 Urine Bilirubin Neg (Negative) 12/03/22 13:57 Urine Urobilinogen Norm mg/dL (Negative) 12/03/22 13:57 Ur Leukocyte Esterase Negative (Negative) 12/03/22 13:57 Discharge Plan Discharge Patient Disposition: Home Clinical Impression: Dementia Condition: Stable Prescriptions: No Action acetaminophen 325 mg capsule 650 mg PO .EVERY 4-6 HOURS PRN (Reason: Pain) cetirizine [Zyrtec] 10 mg tablet 10 mg PO DAILY PRN (Reason: Allergy Symptoms) memantine 10 mg tablet 10 mg PO QPM cyanocobalamin (vitamin B-12) 1,000 mcg tablet 1,000 mcg PO .ON MON,WED,FRI donepezil 10 mg tablet 10 mg PO QPM benzonatate 200 mg capsule 200 mg PO TID PRN (Reason: cough) Qty: 30 0RF carvedilol 6.25 mg Tablet 6.25 mg PO BID Rx Instructions: must administer with a meal/food loperamide 2 mg Tablet See Rx Instructions .ROUTE .COMPLEX Rx Instructions: 4mg po after first loose stool then give 2mg po as needed for each loose stool thereafter *dne 4 tabs per day* Flonase 50 mcg/actuation [place],Suspension 1 spray INTRANASAL Q12H PRN (Reason: Allergy Symptoms) Asmanex HFA 100 mcg/actuation HFA aerosol inhaler 1 puff INHALATION BID amlodipine 5 mg tablet 5 mg PO DAILY@07 ProAir HFA 90 mcg/actuation HFA aerosol inhaler 1 puff inhalation Q6H PRN (Reason: shortness of breath or wheezing) escitalopram oxalate 20 mg tablet 20 mg PO QPM Discharge Orders: Discharge ED (Routine); Ordered 12/03/22 Ordered By: Clayton Dubon Referrals: Darlene Knutson MD [Primary Care Provider] - 2 weeks Discharge Diet: Usual diet Discharge Activity: Resume usual activity Activity Restrictions/Additional Instructions: As we discussed while you are in the emergency department your scan of your brain and skull did not reveal any evidence of bleeding or other acute changes. Your laboratory tests and urine tests performed in the emergency department are also normal. In the case of memory problems as we get older sometimes we see fluctuations in her memory and concentration. If there are any new concerns worsening symptoms development of fevers, or other concerning symptoms return to the emergency department otherwise follow-up with your regular doctor for reevaluation. Coding Level of Care Code ED Heavy Machinery Assembler for Myriam Davis
[2022-12-03 13:28] LABS: Alanine Aminotransferase 18 U/L (0-33); Albumin Level 3.9 g/dL (3.5-5.2); Alkaline Phosphatase 61 U/L (35-105); Anion Gap 11.8 (5-19); Aspartate Amino Transferase 17 U/L (0-32); Blood Urea Nitrogen 19 mg/dL (8-23); Calcium 8.7 mg/dL (8.5-10.5); Carbon Dioxide 31 mmol/L (22-29); Chloride 99 mmol/L (98-107); Creatinine Clr Calc Pharmacy 55.8143; Globulin 2.8 g/dL (1.3-4.6); Glucose 93 mg/dL (65-115); Osmolality Calculated 286 mOsm/kg (285-295); Potassium 4.8 mmol/L (3.5-5.1); Sodium 137 mmol/L (136-145); Total Bilirubin 0.5 mg/dL (0.15-1.2); Total Protein 6.7 g/dL (6.6-8.7)
--- NOTE | 2022-12-03 13:36 | PC.PHAR ---
[phone]medications entered are from the pts nh mar-pts mar has the asmanex hfa 1p bid was used today but also end date listed as 12/03/22-pts mar has the pt completed prednisone titrating dose on 12/02/22
[2022-12-03 14:03] LABS: Add Urine Microscopic? NO; Charge for UA Resulting for Rev
[2022-12-03 14:05] LABS: Bilirubin Urine Neg (Negative); Blood Urine Neg (Negative); Glucose Urine UA Norm (Normal); Ketones Urine Negative (Negative); Leukocyte Esterase Urine Negative (Negative); Nitrate Urine Negative (Negative); Protein Urine Neg (Negative); Urine Appearance Clear (CLEAR); Urine Color Yellow (Yellow); Urobilinogen Urine Norm (Negative); pH Urine 5 (5-7)
[2022-12-03 14:13] VITALS: BP 179/76; PULSE 55; RESP 16; O2SAT 94
[2022-12-03 14:30] VITALS: BP 116/63; PULSE 63; RESP 16; O2SAT 94
[2022-12-03 14:45] VITALS: BP 116/63; PULSE 63; RESP 16; O2SAT 94
== END 2022-12-03 14:46 | disposition home or self-care (01) ==
PROVIDERS: Emergency Provider Emergency Medicine; PCP Family Medicine
DX: F03.90 Unspecified dementia, unspecified severity, without behavioral disturbance, psychotic disturbance, mood disturbance, and anxiety (principal); Z87.891 Personal history of nicotine dependence; J44.9 Chronic obstructive pulmonary disease, unspecified; I11.0 Hypertensive heart disease with heart failure; I50.30 Unspecified diastolic (congestive) heart failure; E78.2 Mixed hyperlipidemia
CPT/HCPCS: 36415; 70450; 80053; 81003; 85025; 99284

== ENCOUNTER → 2022-12-29 10:04 | Outpatient (BNVA) | payer MEDICARE, SELFPAY | PROVIDERS: PCP Family Medicine; Visit Provider Internal Medicine Cardiovascular Disease | DX: I11.0 Hypertensive heart disease with heart failure (principal); I50.30 Unspecified diastolic (congestive) heart failure; J44.1 Chronic obstructive pulmonary disease with (acute) exacerbation; E78.2 Mixed hyperlipidemia; F03.93 Unspecified dementia, unspecified severity, with mood disturbance; R00.1 Bradycardia, unspecified | CPT/HCPCS: 99214 ==

== ENCOUNTER → 2023-02-01 11:27 | Outpatient (BNVA) | payer MEDICARE, SELFPAY | PROVIDERS: PCP Family Medicine; Visit Provider Specialist | DX: G30.9 Alzheimer's disease, unspecified (principal); F02.C0 Dementia in other diseases classified elsewhere, severe, without behavioral disturbance, psychotic disturbance, mood disturbance, and anxiety; J44.9 Chronic obstructive pulmonary disease, unspecified; R09.02 Hypoxemia | CPT/HCPCS: 96116; 99205 ==

== ENCOUNTER 2023-02-17 10:51 | Outpatient (CLI) | payer MEDICARE, SELFPAY ==
[2023-02-17 11:03] VITALS: PULSE 64; RESP 18; O2SAT 94
[2023-02-17] MEDS: albuterol 2.5 mg/3 mL Neb INHALATION (11:03)
== END 2023-02-17 10:52 | disposition home or self-care (01) ==
LOC: RT 10:53
PROVIDERS: PCP Family Medicine; Visit Provider Family Medicine
DX: J43.9 Emphysema, unspecified (principal)
CPT/HCPCS: 94060; 94726; 94729; J7613

== ENCOUNTER → 2023-04-15 13:09 | Outpatient (BNVA) | payer MEDICARE, SELFPAY | PROVIDERS: PCP Family Medicine; Visit Provider Internal Medicine Pulmonary Disease | DX: J43.9 Emphysema, unspecified (principal); Z77.22 Contact with and (suspected) exposure to environmental tobacco smoke (acute) (chronic); Z99.81 Dependence on supplemental oxygen; I51.9 Heart disease, unspecified | CPT/HCPCS: 99204 ==

== ENCOUNTER 2023-05-17 08:46 | Emergency (ER) | payer MEDICARE, SELFPAY ==
--- NOTE | 2023-05-17 08:48 | ECG_ITS ---
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 Measurements Intervals [place] Rate: 66 P: 75 SC: 192 QRS: 68 QRSD: 79 T: 82 QT: 395 QTc: 415 Interpretive Statements SINUS RHYTHM WITH FREQUENT SUPRAVENTRICULAR PREMATURE COMPLEXES ABNORMAL RHYTHM ECG Compared to ECG 11/09/2022 16:52:38 Sinus bradycardia no longer present Electronically Signed On 05-17-2023 9:42:45 RETURN TO FACTORY CLERK by Luci Ngo M.D. [email or web address]
--- NOTE | 2023-05-17 08:48 | XR_ITS ---
WS: [id number] Exam: XR chest 1V portable [id number] Date/Time of Exam: 05/17/2023 9:00 AM Reason For Exam: dyspnea/cough Comparison 12/02/2022. The lungs are fully expanded and clear. Normal cardiomediastinal silhouette. No pleural effusions. Os seous structures are intact. IMPRESSION: 1. No acute cardiopulmonary finding. No change.
[2023-05-17 08:49] VITALS: BP 128/60; PULSE 57; RESP 16; TEMP 36.8; O2SAT 98; BMI 27.4
[2023-05-17 08:53] VITALS: O2SAT 98
--- NOTE | 2023-05-17 09:10 | ED_ITS ---
HPI - General Adult General: Chief complaint: General Medical Stated complaint: General body aches Time Seen by Provider: 05/17/23 08:48 Source: patient Mode of arrival: EMS History of Present Illness: 77-year-old female who presents to the emergency room with complaints of generalized body aches and sharp pain on the left anterior chest wall that is worse when she takes a deep breath or with palpation of the ribs inferior to the breast on the left side. She denies any fever sweats or chills she has a chronic baseline productive cough that has been unchanged secondary to her COPD. She is chronically on 2 L/min by nasal cannula and still maintaining normal sats with her usual 2 L. There is no radiation of the pain into her back or neck she does have some arm discomfort but does not necessarily feel it is directly tied to her chest. Onset (ago): hour(s) Location: chest (Under the left breast) Severity: severe Quality: sharp Pain Consistency: constant Associated symptoms: Reports dyspnea; Deny chest pain, confusion, cough, diaphoresis, decreased appetite, fevers/chills, headache(s), malaise, nausea, rash, palpitations, seizures, short of breath, syncope, vomiting or weakness Review of Systems 2 Const: Denies: fever(s), chills, malaise or diaphoresis Card: Denies: chest pain, palpitations or syncope Resp: Reports: dyspnea GI: Denies: abdominal pain, nausea or vomiting : Denies: dysuria, urinary frequency or urinary urgency Musc: Denies: neck pain or back pain Skin/Breast: Denies: rash Neuro: Denies: headache(s) or confusion PFSH ED PFSH: Medical History Acute exacerbation of chronic obstructive pulmonary disease Allergic rhinitis B12 deficiency Bradycardia COPD exacerbation Dementia, senile with depression Diastolic CHF Essential hypertension History of kidney stones History of malignant melanoma Hx of vaginal delivery Hypoxia Hypoxia Irregular heartbeat Mixed hyperlipidemia Other difficulties with micturition Pneumonia Urinary incontinence Urinary incontinence, mixed Surgical History History of melanoma excision History of neck surgery Previous back surgery S/P cholecystectomy S/P hysterectomy Family History Daughter Diabetes Mother Myocardial infarction CAD (coronary artery disease), Onset Age: 60 CABG x 4 Brother Myocardial infarction CAD (coronary artery disease), Onset Age: 60 Family/Other Dementia Diabetes Family/Other CAD (coronary artery disease) Father CAD (coronary artery disease), Onset Age: 60 CABG x 4 Denies family history of Clotting disorder Chronic kidney disease (CKD) Suicide Anesthesia complication Bleeding disorder Lung disease Cancer Stroke Social History Smoking and tobacco/nicotine status: never used tobacco/nicotine Quit status (tobacco/nicotine): has quit using Second hand smoke exposure: No Alcohol intake: never Substance/Drug Use: never Current occupational status: retired Female Reproductive History: Spontaneous abortions: No Physical Exam Const: COMMON NORMALS: no acute distress GENERAL APPEARANCE: cooperative and comfortable ORIENTATION/CONSCIOUSNESS: Yes awake, Yes oriented to person, Yes oriented to place and Yes oriented to time HENMT: COMMON NORMALS: normocephalic, atraumatic and hearing grossly normal bilaterally HEAD & SCALP: normocephalic and atraumatic Resp: COMMON NORMALS: normal respiratory effort, No retractions, No use of accessory muscles and clear to auscultation bilaterally AUSCULTATION: clear to auscultation bilaterally Cardio: COMMON NORMALS: regular rate, regular rhythm and No murmurs present (Cardio) RATE: regular rate RHYTHM: regular rhythm GI: COMMON NORMALS: Soft to palpation and No hepatosplenomegaly present AUSCULTATION: Yes normoactive bowel sounds PALPATION: Yes Soft to palpation, No Tenderness to palpation present (GI), No Guarding due to palpation present (GI) and Yes No hepatosplenomegaly present Extremity: COMMON NORMALS: normal to inspection, capillary refill normal, no clubbing, cyanosis or edema, no calf tenderness and no pedal edema Neuro: SENSORIUM/ORIENTATION: Yes oriented to person, Yes oriented to place and Yes oriented to time Skin: COMMON NORMALS: no rashes or lesions noted GENERAL SKIN EXAM: no rashes or lesions noted Course Vital Signs: Vital signs: Vital Signs Temperature 98.2 F 05/17/23 08:49 Pulse Rate 50 L 05/17/23 10:30 Respiratory Rate 16 05/17/23 10:30 Blood Pressure 135/60 05/17/23 10:30 Pulse Oximetry 90 05/17/23 10:30 Oxygen Delivery Me thod Nasal Cannula 05/17/23 10:00 Oxygen Flow Rate 2 05/17/23 10:00 MDM - General Adult Medical Decision Making Labs and imaging reviewed. No EKG changes no acute troponin delta. Pain reproducible with inspiration and palpation treat his musculoskeletal pain. Her oxygen sats been good she did have significant improvement with pain medication given in the department. Follow-up with your primary care doctor if not improving. Medical Records I reviewed the patient's medical records. Lab Data I reviewed the patient's lab results. 05/17/23 09:13 05/17/23 09:13 Laboratory Results WBC 6.36 10^3/uL (3.29-11.43) 05/17/23 09:13 RBC 4.35 10^6/uL (3.85-5.65) 05/17/23 09:13 Hgb 12.80 g/dL (11.27-16.99) 05/17/23 09:13 Hct 41.7 % (36-47) 05/17/23 09:13 MCV 95.9 fl (85-98) 05/17/23 09:13 MCH 29.4 pg (27-33) 05/17/23 09:13 MCHC 30.7 g/dL (30-55) 05/17/23 09:13 RDW 14.6 % (12.1-15.1) 05/17/23 09:13 Plt Count 235 10^3/cmm (157-399) 05/17/23 09:13 MPV 11.0 fL (7.4-10.4) H 05/17/23 09:13 Neut % (Auto) 69.1 % 05/17/23 09:13 Lymph % (Auto) 20.9 % 05/17/23 09:13 Williams % (Auto) 6.3 % 05/17/23 09:13 Eos % (Auto) 2.5 % 05/17/23 09:13 Baso % (Auto) 0.9 % 05/17/23 09:13 Neut # (Auto) 4.39 10^3/uL (1.8-7.7) 05/17/23 09:13 Lymph # (Auto) 1.3 10^3/uL (0.8-4.8) 05/17/23 09:13 Williams # (Auto) 0.4 10^3/uL (0.2-0.9) 05/17/23 09:13 Eos # (Auto) 0.2 10^3/uL (0.0-0.8) 05/17/23 09:13 Baso # (Auto) 0.1 10^3/uL (0.0-0.1) 05/17/23 09:13 Nucleated RBC % (auto) 0 % 05/17/23 09:13 Nucleated RBCs # 0.0 /100WBC 05/17/23 09:13 Sodium 141 mmol/L (136-145) 05/17/23 09:13 Potassium 5.3 mmol/L (3.5-5.1) H 05/17/23 09:13 Chloride 105 mmol/L (98-107) 05/17/23 09:13 Carbon Dioxide 29 mmol/L (22-29) 05/17/23 09:13 Anion Gap 12.3 (5-19) 05/17/23 09:13 BUN 16 mg/dL (8-23) 05/17/23 09:13 Creatinine 0.6 mg/dL (0.5-0.9) 05/17/23 09:13 GFR Calculation Not Reportable 05/17/23 09:13 Glucose 108 mg/dL (65-115) 05/17/23 09:13 Calculated Osmolality 294 mOsm/kg (285-295) 05/17/23 09:13 Calcium 9.3 mg/dL (8.5-10.5) 05/17/23 09:13 Total Bilirubin 0.5 mg/dL (0.15-1.2) 05/17/23 09:13 AST 17 U/L (0-32) 05/17/23 09:13 ALT 17 U/L (0-33) 05/17/23 09:13 Alkaline Phosphatase 88 U/L (35-105) 05/17/23 09:13 Troponin T Baseline 19 ng/L (0-10) H 05/17/23 09:13 Troponin T 120 Minute 16.02 ng/L (0-10) H 05/17/23 11:01 Delta Troponin T -2.98 ABS# (0-10) L 05/17/23 11:01 Total Protein 7.1 g/dL (6.6-8.7) 05/17/23 09:13 Albumin 4.1 g/dL (3.5-5.2) 05/17/23 09:13 Globulin 3.0 g/dL (1.3-4.6) 05/17/23 09:13 Urine Color Yellow (Yellow) 05/17/23 09:10 Urine Appearance Clear (CLEAR) 05/17/23 09:10 Urine pH 9 (5-7) H 05/17/23 09:10 Ur Specific Fitzhugh 1.010 (1.005-1.030) 05/17/23 09:10 Urine Protein Neg (Negative) 05/17/23 09:10 Urine Glucose (UA) Norm (Normal) 05/17/23 09:10 Urine Ketones Negative (Negative) 05/17/23 09:10 Urine Blood Neg (Negative) 05/17/23 09:10 Urine Nitrate Negative (Negative) 05/17/23 09:10 Urine Bilirubin Neg (Negative) 05/17/23 09:10 Prot Sulfosalicylic Acd Negative (Negative) 05/17/23 09:10 Urine Urobilinogen Norm mg/dL (Negative) 05/17/23 09:10 Ur Leukocyte Esterase Negative (Negative) 05/17/23 09:10 All radiology interpretation(s) finalized by discharge Discharge Plan Discharge Patient Disposition: Home Clinical Impression: Rib pain on left side Condition: Stable Prescriptions: New hydrocodone-acetaminophen 5-325 mg tablet 1 tab PO Q6H PRN (Reason: pain) Qty: 15 0RF No Action acetaminophen 325 mg capsule 650 mg PO .EVERY 4-6 HOURS PRN (Reason: Pain) carvedilol 3.125 mg tablet 3.125 mg PO BID 30 Days Qty: 60 2RF diclofenac sodium [Voltaren Arthritis Pain] 1 % gel 4 g topical QID PRN (Reason: pain) Qty: 100 2RF Rx Instructions: apply to neck amlodipine 5 mg tablet 5 mg PO DAILY 90 Days Qty: 90 1RF donepezil 10 mg tablet 10 mg PO QPM 90 Days Qty: 90 1RF escitalopram oxalate 20 mg tablet 20 mg PO QPM 90 Days Qty: 90 1RF memantine 10 mg tablet 10 mg PO QPM 90 Days Qty: 90 1RF budesonide 0.5 mg/2 mL suspension for nebulization 0.5 mg inhalation BID Qty: 120 6RF ipratropium-albuterol 0.5 mg-3 mg(2.5 mg base)/3 mL solution for nebulization 3 ml inhalation Q6H PRN (Reason: wheezing) Qty: 180 6RF cyanocobalamin (vitamin B-12) 1,000 mcg tablet 1,000 mcg PO .ON MON,WED,FRI fluticasone propionate 50 mcg/actuation spray,suspension 1 spray INTRANASAL Q12H PRN (Reason: Allergy Symptoms) Qty: 16 1RF miscellaneous medical supply Misc See Rx Instructions miscellaneous .COMPLEX Qty: 1 0RF Rx Instructions: Cont O2 at 1-2L via NC to keep PO2 levels at least 90% tiotropium bromide [Spiriva with HandiHaler] 18 mcg capsule, w/inhalation device 1 cap inhalation DAILY Qty: 60 6RF Rx Instructions: puncture 1 cap using device; one dose = 2 inhalations arformoterol [Brovana] 15 mcg/2 mL solution for nebulization 2 ml inhalation BID Qty: 120 6RF cetirizine 10 mg Tablet 10 mg PO DAILY PRN (Reason: Allergic Symptoms) benzonatate 200 mg capsule 200 mg PO TID PRN (Reason: cough) Qty: 30 0RF loperamide 2 mg Tablet See Rx Instructions .ROUTE .COMPLEX Rx Instructions: 4mg po after first loose stool then give 2mg po as needed for each loose stool thereafter *dne 4 tabs per day* albuterol sulfate [ProAir HFA] 90 mcg/actuation HFA aerosol inhaler 1 puff inhalation Q6H PRN (Reason: shortness of breath or wheezing) Discharge Orders: Discharge ED (Routine); Ordered 05/17/23 Ordered By: Misha Duarte Referrals: Darlene Knutson MD [Primary Care Provider] - Discharge Diet: Usual diet Discharge Activity: Increase activity as tolerated Patient Instructions: Opioid Safety, Pain Management Activity Restrictions/Additional Instructions: Thank you for choosing [facility] for your healthcare needs today. Please realize this is an emergency room and that we are providing you with a medical screening exam and this may not be complete and all inclusive of all the testing and or work up that you may need to determine your ailment or severity of your illness. It is very important that you follow up as instructed or that you return to the Emergency Department should you have concerns or if your condition changes or worsens in any way. You are seen today for left lower rib pain pain is reproducible with palpation and deep inspiration her cardiac enzymes and EKG were unremarkable. Recommend use pain medications prescribed as needed and follow-up with your primary care doctor if not improving Coding Level of Care Code ED Review Manager for Myriam Davis
[2023-05-17 09:23] LABS: Basophils # 0.1 10^3/uL (0.0-0.1); Basophils % 0.9 %; Eosinophils # 0.2 10^3/uL (0.0-0.8); Eosinophils % 2.5 %; Hematocrit 41.7 % (36-47); Lymphocytes # 1.3 10^3/uL (0.8-4.8); Lymphocytes % 20.9 %; Mean Corpuscular HGB Conc 30.7 g/dL (30-55); Mean Corpuscular Hemoglobin 29.4 pg (27-33); Mean Corpuscular Volume 95.9 fl (85-98); Monocytes # 0.4 10^3/uL (0.2-0.9); Monocytes % 6.3 %; Neutrophils # 4.39 10^3/uL (1.8-7.7); Neutrophils % 69.1 %; Nucleated Red Blood Cells % 0 %; Platelet Count 235 10^3/cmm (157-399); Red Blood Count 4.35 10^6/uL (3.85-5.65); Red Cell Distribution Width 14.6 % (12.1-15.1); White Blood Count 6.36 10^3/uL (3.29-11.43)
[2023-05-17 09:35] LABS: Add Urine Microscopic? NO; Charge for UA Resulting for Rev
--- NOTE | 2023-05-17 09:43 | PC.PHAR ---
PT IS FROM [facility]
[2023-05-17 09:44] LABS: Alanine Aminotransferase 17 U/L (0-33); Albumin Level 4.1 g/dL (3.5-5.2); Alkaline Phosphatase 88 U/L (35-105); Anion Gap 12.3 (5-19); Aspartate Amino Transferase 17 U/L (0-32); Blood Urea Nitrogen 16 mg/dL (8-23); Calcium 9.3 mg/dL (8.5-10.5); Carbon Dioxide 29 mmol/L (22-29); Chloride 105 mmol/L (98-107); Creatinine Clr Calc Pharmacy 57.5012; Glucose 108 mg/dL (65-115); Osmolality Calculated 294 mOsm/kg (285-295); Potassium 5.3 mmol/L (3.5-5.1); Sodium 141 mmol/L (136-145); Total Bilirubin 0.5 mg/dL (0.15-1.2); Total Protein 7.1 g/dL (6.6-8.7)
[2023-05-17] MEDS: morphine 4 mg/mL SDV 1 mL IVP (09:57)
[2023-05-17 10:00] VITALS: BP 156/68; PULSE 54; RESP 16; O2SAT 97
[2023-05-17 10:09] LABS: Troponin(5th) Baseline 19 ng/L (0-10)
[2023-05-17 10:17] LABS: Bilirubin Urine Neg (Negative); Blood Urine Neg (Negative); Glucose Urine UA Norm (Normal); Ketones Urine Negative (Negative); Leukocyte Esterase Urine Negative (Negative); Nitrate Urine Negative (Negative); Protein Urine Neg (Negative); Sulfosalicylic Acid Urine Negative (Negative); Urine Appearance Clear (CLEAR); Urine Color Yellow (Yellow); Urobilinogen Urine Norm (Negative); pH Urine 9 (5-7)
[2023-05-17 10:30] VITALS: BP 135/60; PULSE 50; RESP 16; O2SAT 90
[2023-05-17 11:25] LABS: Troponin 5 2HR 16.02 ng/L (0-10)
[2023-05-17 11:28] LABS: Troponin 5 2HR Delta -2.98 ABS# (0-10)
--- NOTE | 2023-05-17 11:51 | ECG_ITS ---
[facility] Test Date: 2023-05-17 Pat Name: Irina Temple Department: Room: Gender: Female Safe Technician: : 1945 Requested By: Misha Angel Order Number: [id number] [place] MD: Luci Ngo M.D. Measurements Intervals [place] Rate: 59 P: 68 [place]: 193 QRS: 76 QRSD: 77 T: 83 QT: 413 QTc: 412 Interpretive Statements SINUS BRADYCARDIA Compared to ECG 05/17/2023 08:51:12 Sinus rhythm no longer present Electronically Signed On 05-18-2023 1:52:33 SUBSTITUTE NURSE by Luci Ngo M.D. [id number]
--- NOTE | 2023-05-17 14:08 | PC.NURSE ---
Hydrocodone RX was not signed by the physician- her pharmacy called and we were able to call in Tramadol 50 mg PO Q6H PRN Pain (#20)
== END 2023-05-17 12:12 | disposition home or self-care (01) ==
PROVIDERS: Emergency Provider Family Medicine; PCP Family Medicine
DX: R07.81 Pleurodynia (principal); J44.9 Chronic obstructive pulmonary disease, unspecified; I11.0 Hypertensive heart disease with heart failure; I50.30 Unspecified diastolic (congestive) heart failure; E78.2 Mixed hyperlipidemia
CPT/HCPCS: 36415; 71045; 80053; 81003; 84484; 85025; 93005; 96374; 99285; J2270

== ENCOUNTER 2023-07-29 11:46 | Outpatient (CLI) | payer MEDICARE, SELFPAY ==
--- NOTE | 2023-07-29 12:00 | CT_ITS ---
WS: [id number] CT chest wo con [id number] HISTORY: abnormal CXR/ Granulomas/ increased SOB TECHNIQUE: Axial imaging performed through the thorax. Coronal and sagittal reformats are submitted. All CT scans at [facility] use at least one of these dose optimization techniques: automated exposure control; mA and/or kV adjustment per patient size (includes targeted exams where dose is mat ched to clinical indication); or iterative reconstruction. CONTRAST: None DLP: 373.83 mGy.cm COMPARISON: Radiograph 05/17/2023 Lungs and central airway: Normal. Pleura: Minimal hyperinflation. No mass or pulmonary nodule. Minimal platelike atelectasis in the RIG HT lower and RIGHT middle lobe. Heart and pericardium: Normal size heart with no pericardial effusion. Mediastinum and abel: No mediastinum or hilar adenopathy. Vessels: Moderate atherosclerosis aorta. Pulmonary artery size is equal to the aorta. Chest wall and lower neck: No soft tissue masses. Upper abdomen: Small hiatal hernia. Suprarenal aortic atherosclerosis. Prior cholecystectomy. No adre nal mass. Osseous structures: Moderate increase in thoracic kyphosis. No destructive bone lesions. IMPRESSION: 1. Mild pulmonary hyperexpansion. No mass or pneumonia. 2. No adenopathy. 3. Mild atherosclerosis thoracic and suprarenal aorta. 4. Very minimal platelike atelectasis RIGHT lower and RIGHT middle lobes.
== END 2023-07-29 11:47 | disposition home or self-care (01) ==
LOC: RAD 11:50
PROVIDERS: PCP Family Medicine; Visit Provider Internal Medicine Pulmonary Disease
DX: J84.10 Pulmonary fibrosis, unspecified (principal); R93.89 Abnormal findings on diagnostic imaging of other specified body structures; I70.0 Atherosclerosis of aorta
CPT/HCPCS: 71250

== ENCOUNTER 2023-08-10 10:30 | Outpatient (CLI) | payer MEDICARE, SELFPAY | END 2023-08-10 10:31 | disposition home or self-care (01) | LOC: SLEEP 08-12 08:34 | PROVIDERS: PCP Family Medicine; Visit Provider Family Medicine | DX: I50.30 Unspecified diastolic (congestive) heart failure (principal); I49.9 Cardiac arrhythmia, unspecified; J44.1 Chronic obstructive pulmonary disease with (acute) exacerbation; Z99.81 Dependence on supplemental oxygen | CPT/HCPCS: 94762 ==

== ENCOUNTER → 2023-08-28 13:30 | Outpatient (BNVA) | payer MEDICARE, SELFPAY | PROVIDERS: PCP Family Medicine; Visit Provider Emergency Medicine | DX: J44.1 Chronic obstructive pulmonary disease with (acute) exacerbation (principal) | CPT/HCPCS: 71046 ==

== ENCOUNTER → 2023-10-07 09:11 | Outpatient (BNVA) | payer MEDICARE, SELFPAY | PROVIDERS: PCP Family Medicine; Visit Provider Family Medicine | DX: I10 Essential (primary) hypertension (principal); R73.03 Prediabetes | CPT/HCPCS: 80053; 80061; 83036 ==

== ENCOUNTER → 2023-12-30 09:24 | Outpatient (BNVA) | payer MEDICARE, SELFPAY | PROVIDERS: PCP Family Medicine; Visit Provider Internal Medicine Cardiovascular Disease | DX: I65.23 Occlusion and stenosis of bilateral carotid arteries (principal); I10 Essential (primary) hypertension; R00.1 Bradycardia, unspecified; E78.2 Mixed hyperlipidemia; I50.9 Heart failure, unspecified; J43.8 Other emphysema | CPT/HCPCS: 99214 ==

== ENCOUNTER 2024-01-20 12:59 | Outpatient (CLI) | payer MEDICARE, SELFPAY ==
--- NOTE | 2024-01-20 14:30 | USCV_ITS ---
Irina Temple Age: 78 Gender: F : 1945 Exam Date: 01/20/2024 13:22 Ordering Phys: Geraldine Mcpherson MD ([email or web address]) Technologist: R Exam Location: [facility] [place] Indication: Right Bruit Risk Factors: Previous Vascular Surgery: Right Brachial BP: / Left Brachial BP: / Right Left Velocity (cm/s) Spectral Plaque Velocity (cm/s) Spectral Plaque Syst/Diast Broadening Syst/Diast Broadening 98.80/ 8.90 Prox CCA 103.50/ 25.70 93.60/ 19.10 Mid CCA 103.50/ 20.30 96.20/ 12.70 Distal CCA 100.60/ 15.70 90.30/ 26.30 Prox ICA 78.80 / 20.00 75.60/ 18.30 Mid ICA 71.20 / 17.20 86.70/ 10.90 Distal ICA 63.50 / 8.00 232.10 ECA 102.80 0.90 ICA/CCA 0.80 Antegrade Vertebral Antegrade 41.90/ 7.30 cm/s 70.60/ 18.60 cm/s Tri Subclavian Tri 67.40 124.9 0 FINDINGS Minimal plaque at the bifurcations bilaterally. Interval thickening of the common carotid arteries bilaterally. Antegrade flow in the vertebral arteries bilaterally. Elevated velocity in the right external carotid artery CONCLUSIONS Minimal plaque at the bifurcations bilaterally with Doppler features suggesting less than 50% stenosis. Elevated velocity in the right external carotid artery suggesting hemodynamically significant stenosis . No similar previous studies are available for comparison Dr Geraldine Mcpherson MD [facility] (Electronically Signed) Final Date: 30 January 2024 17:32 S
== END 2024-01-20 13:00 | disposition home or self-care (01) ==
PROVIDERS: PCP Family Medicine; Visit Provider Internal Medicine Cardiovascular Disease
DX: I65.23 Occlusion and stenosis of bilateral carotid arteries (principal); I77.89 Other specified disorders of arteries and arterioles
CPT/HCPCS: 93880; 99214

== ENCOUNTER → 2024-02-02 11:13 | Outpatient (BNVA) | payer MEDICARE, SELFPAY | PROVIDERS: PCP Family Medicine; Visit Provider Family Medicine | DX: I50.9 Heart failure, unspecified (principal) | CPT/HCPCS: 80048; 83880 ==

== ENCOUNTER → 2024-03-07 13:56 | Outpatient (BNVA) | payer MEDICARE, SELFPAY | PROVIDERS: PCP Family Medicine; Visit Provider Specialist | DX: G30.9 Alzheimer's disease, unspecified (principal); F02.80 Dementia in other diseases classified elsewhere, unspecified severity, without behavioral disturbance, psychotic disturbance, mood disturbance, and anxiety | CPT/HCPCS: 99213 ==

== ENCOUNTER → 2024-07-04 11:16 | Outpatient (BNVA) | payer MEDICARE, SELFPAY | PROVIDERS: PCP Family Medicine; Visit Provider Family Medicine | DX: J20.9 Acute bronchitis, unspecified (principal); J98.8 Other specified respiratory disorders; B97.89 Other viral agents as the cause of diseases classified elsewhere | CPT/HCPCS: 87400; 87426 ==

== ENCOUNTER → 2024-08-02 10:48 | Outpatient (BNVA) | payer MEDICARE, SELFPAY | PROVIDERS: PCP Family Medicine; Visit Provider Family Medicine | DX: R35.0 Frequency of micturition (principal); E11.9 Type 2 diabetes mellitus without complications | CPT/HCPCS: 80053; 81000; 83036 ==

== ENCOUNTER → 2024-08-09 14:29 | Outpatient (BNVA) | payer MEDICARE, SELFPAY | PROVIDERS: PCP Family Medicine; Referring Provider Family Medicine; Visit Provider Family Medicine | DX: M25.551 Pain in right hip (principal) | CPT/HCPCS: 73502 ==

== ENCOUNTER → 2025-01-15 10:12 | Outpatient (BNVA) | payer MEDICARE, SELFPAY | PROVIDERS: PCP Family Medicine; Visit Provider Family Medicine | DX: I50.9 Heart failure, unspecified (principal) | CPT/HCPCS: 80053; 80061; 85025 ==

== ENCOUNTER → 2025-06-07 13:48 | Outpatient (BNVA) | payer MEDICARE, SELFPAY | PROVIDERS: PCP Family Medicine; Visit Provider Family Medicine | DX: R30.0 Dysuria (principal) | CPT/HCPCS: 81000; 87086 ==

== ENCOUNTER → 2025-06-21 11:59 | Outpatient (BNVA) | payer MEDICARE, SELFPAY | PROVIDERS: PCP Family Medicine; Visit Provider Specialist | DX: G30.9 Alzheimer's disease, unspecified (principal); F02.80 Dementia in other diseases classified elsewhere, unspecified severity, without behavioral disturbance, psychotic disturbance, mood disturbance, and anxiety; R03.0 Elevated blood-pressure reading, without diagnosis of hypertension | CPT/HCPCS: 99212 ==